=== PATIENT | female | born 1965 | race Caucasian/White ===

== ENCOUNTER 2017-07-05 09:41 | Day surgery (SDC) | payer MEDICAID, SELFPAY ==
[2017-07-05 10:11] VITALS: BP 109/66; PULSE 69; RESP 14; TEMP 36.6; O2SAT 99; BMI 29.7
--- NOTE | 2017-07-05 10:30 | RAD_ITS ---
STUDY: X-RAY - LUMBAR SPINE REASON FOR EXAM: Female, 51 years old. Epidural block. TECHNIQUE: Single coned-down view(s) of the lumbar spine were obtained. COMPARISON: None FINDINGS: Intraoperative imaging provided for epidural block. RAD/Spine 1 View Any Level IMPRESSION: Imaging provided for epidural block. Electronically Signed: Frederick Magdaleno MD at 14:25 EDT Tel [phone], Service support ,
[2017-07-05] MEDS: Triamcinolone Acetonide 40 MG/ML Vial (11:15)
[2017-07-05 11:21] VITALS: BP 109/66; BP 78/58; PULSE 72; RESP 16; TEMP 36.3; O2SAT 97
--- NOTE | 2017-07-05 11:22 | SUR.OPER ---
LIDOCAINE 0.5% 8ML USED BY FOR PROCEDURE. -TB
[2017-07-05 11:25] VITALS: BP 101/71; BP 109/66; PULSE 74; RESP 16; O2SAT 98
[2017-07-05 11:30] VITALS: BP 109/66; BP 93/74; PULSE 77; RESP 16; O2SAT 100
[2017-07-05 11:40] VITALS: BP 104/71; BP 109/66; PULSE 72; RESP 16; TEMP 35.8; O2SAT 100
[2017-07-05 12:00] VITALS: BP 109/66
== END 2017-07-05 12:05 | disposition home or self-care (01) ==
LOC: SDC 09:42 → AC 09:44
PROVIDERS: Visit Provider Anesthesiology Pain Medicine
PROC: 3E0S3BZ Introduction of Anesthetic Agent into Epidural Space, Percutaneous Approach (ICD-10-PCS; CPT 62322; principal; 2017-07-05 10:25)
DX: M51.16 Intervertebral disc disorders with radiculopathy, lumbar region (principal); M51.36 Other intervertebral disc degeneration, lumbar region; J44.9 Chronic obstructive pulmonary disease, unspecified; I10 Essential (primary) hypertension; E78.00 Pure hypercholesterolemia, unspecified; M54.9 Dorsalgia, unspecified; G89.29 Other chronic pain; F17.200 Nicotine dependence, unspecified, uncomplicated; Z78.0 Asymptomatic menopausal state; Z79.899 Other long term (current) drug therapy
CPT/HCPCS: 62323; 64483; 72020; 72100; J7120

== ENCOUNTER → 2017-09-03 11:29 | Outpatient (CLI) | payer MEDICAID, SELFPAY ==
[2017-09-03 12:43] LABS: Amphetamine Urine VISTA NEGATIVE (<1000 ng/mL); Barbiturate Urine VISTA NEGATIVE (< 200 ng/mL); Benzodiazepine Urine VISTA NEGATIVE (< 200 ng/mL); Cocaine Urine VISTA NEGATIVE (< 300 ng/mL); Ecstacy Urine VISTA NEGATIVE (< 500 ng/mL); Methadone Urine VISTA NEGATIVE (< 300 ng/mL); PCP Urine VISTA NEGATIVE (< 25 ng/mL); THC Urine VISTA NEGATIVE (< 50 ng/mL); Vista UDS pH Range 6
== END ==
PROVIDERS: Visit Provider Anesthesiology Pain Medicine
DX: F11.20 Opioid dependence, uncomplicated (principal)
CPT/HCPCS: 80307

== ENCOUNTER → 2018-01-20 14:56 | Outpatient (CLI) | payer MEDICAID, SELFPAY ==
--- NOTE | 2018-01-20 15:00 | RAD_ITS ---
STUDY: X-RAY - PELVIS AND LEFT HIP REASON FOR EXAM: Female, 52 years old. Hip pain for over a year. TECHNIQUE: 3 views of the pelvis and hip. COMPARISON: None. FINDINGS: There is a non-specific bowel gas pattern. Normal visualized soft tissue structures. Normal bilateral iliac wings, sacroiliac joints and visualized sacrum. Normal bilateral superior and inferior pubic rami. Normal pubic symphysis. Normal bilateral ischial tuberosities. There is minimal degenerative changes of the right hip. Normal visualized left femoral head. Normal left acetabulum. There is mild articular joint space narrowing of the left hip. RAD/HIP, UNI W/ Pelvis 2-3 Views IMPRESSION: Mild degenerative changes of the hips. There is no acute fracture or dislocation. Electronically Signed: Zuhair Olivares DO at 16:13 EST Tel [phone], Service support ,
--- OUTSIDE RECORDS SUMMARY | 2018-03-04 13:15 | XMS RPT_ITS ---
:1965 Author Organization OHIP Support Name Relationship Address Phone CORDELL GOMEZ Unavailable [address] + [place] [address] UE Unavailable Unavailable Unavailable D Unavailable Unavailable Unavailable JASON, CORDELL Unavailable Unavailable + [place] [address] JASON, CORDELL Unavailable Unavailable Unavailable HÉCTOR ARIANNE Unavailable [address] [place] [address] JASON, CORDELL Unavailable Unavailable + HÉCTOR ARIANNE Unavailable [address] + [place] [id number] JASON, CORDELL Unavailable Unavailable Unavailable HÉCTOR ARIANNE Unavailable [address] [place] [address] D Unavailable Unavailable Unavailable JASON, CORDELL Unavailable Unavailable + [place] [address] JASON, CORDELL Unavailable Unavailable + HÉCTOR, ARIANNE Unavailable [address] + [place] [address] D Unavailable Unavailable Unavailable JASON, CORDELL Unavailable Unavailable + [place] [address] JASON, CORDELL Unavailable Unavailable + HÉCTOR, ARIANNE Unavailable [address] + [place] [address] JASON, CORDELL Unavailable Unavailable + HÉCTOR ARIANNE Unavailable [address] + [place] [address] JASON, CORDELL Unavailable Unavailable + HÉCTOR, ARIANNE Unavailable [address] [address] + [place] [address] JASON, CORDELL Unavailable Unavailable + HÉCTOR ARIANNE Unavailable [address] + [place] [address] JASON, CORDELL Unavailable Unavailable + HÉCTOR, ARIANNE Unavailable [address] + [place] [address] JASON, CORDELL Unavailable Unavailable + HÉCTOR, ARIANNE Unavailable [address] [address] + [place] [address] JASON, CORDELL Unavailable Unavailable + HÉCTOR, ARIANNE Unavailable [address] + [address], CORDELL Unavailable Unavailable + HÉCTOR, ARIANNE Unavailable [address] [address] + [place] [address] JASON, CORDELL Unavailable Unavailable + HÉCTOR, ARIANNE Unavailable [address] + [place] [address] JASON, CORDELL Unavailable Unavailable + HÉCTOR, ARIANNE Unavailable [address] [facility] [address] + [place] [address] JASON, CORDELL Unavailable Unavailable + HÉCTOR, ARIANNE Unavailable [address] [place] [address] [address] + [place] [address] JASON, CORDELL Unavailable Unavailable + HÉCTOR, ARIANNE Unavailable [address] + [place] [address] JASON, CORDELL Unavailable Unavailable + HÉCTOR, ARIANNE Unavailable [address] + [place] [address] JASON, CORDELL Unavailable Unavailable + HÉCTOR, ARIANNE Unavailable [address] [address] + [place] [address] Care Team Providers Name Role Phone DANNA PINON Attending Unavailable RANULFO VOSS Attending Unavailable RANULFO ISBELL Primary Care Unavailable RANULFO VOSSR Attending Unavailable RANULFO ISBELL Primary Care Unavailable RANULFO VOSS Attending Unavailable RANULFO ISBELL Primary Care Unavailable MOROCCO, ZEE Attending Unavailable ISBELLRANULFO ESCOTO Primary Care Unavailable STADNICK, RANULFO ALLEN Attending Unavailable ISBELL, RANULFO SARABIA Primary Care Unavailable MOROCCO, ZEE Attending Unavailable ISBELL, RANULFO SARABIA Primary Care Unavailable STADNICK, RANULFO ALLEN Attending Unavailable ISBELL, RANULFO SARABIA Primary Care Unavailable EMILY SALAS Attending Unavailable ISBELLRANULFO ESCOTO Primary Care Unavailable STADNICK, RANULFO ALLEN Attending Unavailable ISBELLRANULFO ESCOTO Primary Care Unavailable STADNICK, RANULFO ALLEN Attending Unavailable ISBELLRANULFO ESCOTO Primary Care Unavailable Stadnick, Dr. Ranulfo Rodney Admitting Unavailable Stadnick, Dr. Ranulfo Rodney Attending Unavailable Stadnick, Dr. Ranulfo Rodney Admitting Unavailable Stadnick, Dr. Ranulfo Rodney Attending Unavailable Stadnick, Dr. Ranulfo Rodney Admitting Unavailable Stadnick, Dr. Ranulfo Rodney Attending Unavailable Revill, Dr. Mir Giordano Admitting Unavailable Revill, Dr. Mir Giordano Attending Unavailable Isbell, Dr. Ranulfo Kendrick Admitting Unavailable Isbell, Dr. Ranulfo Kendrick Attending Unavailable Isbell, Dr. Ranulfo Kendrick Admitting Unavailable Isbell, Dr. Ranulfo Kendrick Attending Unavailable Basali, Dr. Meera Valera Admitting Unavailable Basali, Dr. Meera Valera Attending Unavailable Stadnick, Dr. Ranulfo Rodney Admitting Unavailable Stadnick, Dr. Ranulfo Rodney Attending Unavailable GAGEJESUS Attending Unavailable ISBELLRANULFO ESCOTO Referring Unavailable GAGEJESUS Attending Unavailable RANULFO ISBELL Referring Unavailable WALKER WILEY Attending Unavailable SELF, SELF Referring Unavailable XiongPasquale Attending Unavailable Ranulfo Isbell Primary Care Unavailable XiongPasquale Attending Unavailable Ranulfo Isbell Primary Care Unavailable XiongPasquale Admitting Unavailable BaigNiles Attending Unavailable IsbellRanulfo escoto Primary Care Unavailable BaigNiles hernandez Attending Unavailable Ranulfo Isbell Primary Care Unavailable STADNICK, RANULFO ALLEN Attending Unavailable Basali, Meera Attending Unavailable Basali, Meera Referring Unavailable Ranulfo Isbell Primary Care Unavailable Basali, Meera Attending Unavailable Basali, Meera Referring Unavailable Ranulfo sIbell Primary Care Unavailable Basali, Meera Attending Unavailable Basali, Meera Referring Unavailable Ranulfo Isbell Primary Care Unavailable Basali, Meera Attending Unavailable Basali, Meera Referring Unavailable Ranulfo Isbell Primary Care Unavailable PROBLEMS PROBLEMS DATE TYPE CONDITION / CODE ATTENDING STATUS SOURCE 02/08/2018 Admitting Cough / 28() WALKER WILEY [facility] Diagnosis System ([place]) Repository 06/14/2015 Admitting Rheumatoid STARANULFO OVIEDO [facility] diagnosis arthritis, ALEJANDRO Three unspecified / Repository M06.9(ICD-10) 12/06/2017 Admitting Other specified RANULFO VOSS [facility] diagnosis disorders of muscle ALEJANDRO Three / M62.89(ICD-10) Repository 09/03/2017 Unknown F11.20 - Opioid Meera Osborn Active [place] dependence, Community uncomplicated / Hospital F11.20(ICD-10) Repository 05/07/2017 Admitting Major depressive [facility], [facility], System ([place]) recurrent, moderate Repository (HCC) / F33.1(ICD-10) 05/07/2017 Admitting [facility] Diagnosis (episodic System ([place]) paroxysmal anxiety) Repository / F41.0(ICD-10) 04/22/2017 Admitting Allergic contact MOROCCO, [facility] diagnosis dermatitis, Three unspecified cause / Repository L23.9(ICD-10) 04/11/2017 Admitting Rash and other MOROCCO, [facility] diagnosis nonspecific skin Three eruption / Repository R21(ICD-10) 03/06/2017 Admitting Encounter for RANULFO VOSS [facility] One diagnosis general adult ALEJANDRO Repository medical examination without abnormal findings / Z00.00(ICD-10) 03/06/2017 Admitting Rheumatoid RANULFO VOSS [facility] diagnosis arthritis with ALEJANDRO Three rheumatoid factor, Repository unspecified / M05.9(ICD-10) PROCEDURES PROCEDURES No Procedure Records FoundRESULTS RESULTS SPINE LUMBAR Observed: 02/05/2018 Status: F Source: GUIDO (ROUTINE) 9:40 AM [facility] REPOSITORY [facility] [address] [place] [address] Spine Lumbar (Routine) MR#: [id number] Acct: [id number] Name: HÉCTORZULEMA Ana Rep #: [id number] : 1965 F 52 From: Aviva Ca PCP: Ranulfo Isbell MD Status: REG CLI Study: Spine Lumbar (Routine) Date of Exam: 02/05/18 Exam# [id number] Ordering Dr: Meera Osborn MD STUDY: MRI LUMBAR SPINE WITHOUT CONTRAST REASON FOR EXAM: Female, 52 years old. back pain radiates into legs, L and gt;R few years. TECHNIQUE: Standardized fat and water weighted pulse sequences were obtained in the sagittal and axial planes. COMPARISON: X-ray dated July 05, 2017 FINDINGS: T12-L1: There is mild disc space narrowing and endplate spondylosis. There is no significant disc herniation, central canal or foraminal stenosis. Normal lumbar lordosis. There is no substantial scoliosis. Normal conus medullaris that terminates at the L1 L1-2: There is mild disc space narrowing and endplate spondylosis. There is no significant disc herniation, central canal or foraminal stenosis. L2-3: There is minimal disc space narrowing and endplate spondylosis. There is no significant disc herniation, central canal or foraminal stenosis. L3-4: There is minimal disc space narrowing and endplate spondylosis. There is no significant disc herniation, central canal or foraminal stenosis. There is mild facet arthropathy L4-5: There is mild disc space narrowing and endplate spondylosis. There is mild disc bulge without significant central canal or foraminal stenosis. There is mild facet arthropathy. L5-S1: There is minimal disc space narrowing and endplate spondylosis. There is no significant disc herniation, central canal or foraminal stenosis. Normal visualized sacral ala. Normal visualized paraspinous soft tissue structures. MRI/Spine Lumbar (Routine) IMPRESSION: Mild degenerative changes. Electronically Signed: Aviva Ca MD at 9:45 EST Tel , Service support , CC: Meera Osborn MD; Ranulfo Isbell MD Lead Ingot Molder: Signed HIP, UNI W/ PELVIS Observed: 01/20/2018 Status: F Source: PERRY 2-3 VIEWS 2:59 PM [facility] REPOSITORY [facility] [address] [place] [address] HIP, UNI W/ Pelvis 2-3 Views MR#: [id number] Acct: [id number] Name: ZULEMA ANAYA Rep #: [id number] : 1965 F 52 From: Zuhair Olivares DO PCP: Ranulfo Isbell MD Status: REG CLI Study: HIP, UNI W/ Pelvis 2-3 Views Date of Exam: 01/20/18 Exam# [id number] Ordering Dr: Meera Osborn MD STUDY: X-RAY - PELVIS AND LEFT HIP REASON FOR EXAM: Female, 52 years old. Hip pain for over a year. TECHNIQUE: 3 views of the pelvis and hip. COMPARISON: None. FINDINGS: There is a non-specific bowel gas pattern. Normal visualized soft tissue structures. Normal bilateral iliac wings, sacroiliac joints and visualized sacrum. Normal bilateral superior and inferior pubic rami. Normal pubic symphysis. Normal bilateral ischial tuberosities. There is minimal degenerative changes of the right hip. Normal visualized left femoral head. Normal left acetabulum. There is mild articular joint space narrowing of the left hip. RAD/HIP, UNI W/ Pelvis 2-3 Views IMPRESSION: Mild degenerative changes of the hips. There is no acute fracture or dislocation. Electronically Signed: Zuhair Olivares DO at 16:13 EST Tel [phone], Service support , CC: Meera Osborn MD; Ranulfo Isbell MD Lead Ingot Molder: Signed CBC WITH DIFF Collected: 12/03/2017 Status: F Source: [facility] 9:31 AM [facility] REPOSITORY TYPE CODE TESTS RESULT OUT OF RANGE REFERENCE UNITS LAB WBC 3.4-10.6 K/mcL WBC Normal 6.9 LAB RBC 3.7-5.0 M/mcL RBC Normal 4.17 LAB HGB 11.6-15.4 g/dL Normal Hemoglobin 12.8 LAB HCT 34.4-44.8 % Normal Hematocrit 38.1 LAB MCV 82.6-98.9 FL MCV Normal 91.3 LAB MCH 27.9-33.9 pg MCH Normal 30.6 LAB MCHC 33.1-35.1 g/dL MCHC Normal 33.5 LAB RDW 10.0-14.4 % RDW Normal 13.2 LAB PLT 162-402 K/mcL Platelet Normal Count 393 LAB MPV 7.0-10.6 FL MPV Normal 8.2 LAB NEUT# 1.2-6.9 K/mcL Normal Neutrophil # 3.5 LAB LYMPH# 1.0-3.7 K/mcL Normal Lymphocyte # 2.3 LAB MONO# 0.1-0.6 K/mcL High Monocyte # 0.9 LAB EOS# 0-0.5 K/mcL Normal Eosinophil # 0.1 LAB BASO# 0-0.2 K/mcL Basophil Normal # 0.1 LAB SEGNEU% % Normal Segmented Neut % 50.2 LAB LYMP% % Normal Lymphocyte% 33.7 LAB MO% % Monocyte Normal % 12.9 LAB EO% % Normal Eosinophil % 1.9 LAB BA% % Basophil Normal % 1.3 Performed By: #### CBCDIF, BUNCR, HEPF #### Unless otherwise noted, all testing performed by [address] [address] CLIA: [id number] Channel Sales Director: Jesu Cruz M.D. HEPATIC FUNCTION Collected: 12/03/2017 Status: F Source: [facility] PANEL 9:31 AM [facility] REPOSITORY TYPE CODE TESTS RESULT OUT OF RANGE REFERENCE UNITS LAB AST 0-45 U/L Normal AST 36 (SGOT) Result Comment: This test result might be falsely depressed or falsely elevated on samples drawn from patients taking Sulfasalazine and Sulfapyridine. Venipuncture should occur prior to taking either of these drugs. LAB ALT 14-65 U/L Normal ALT (SGPT) 48 Result Comment: This test result might be falsely depressed or falsely elevated on samples drawn from patients taking Sulfasalazine and Sulfapyridine. Venipuncture should occur prior to taking either of these drugs. LAB ALKP 40-150 U/L Normal Alkaline Phosphatase 41 LAB BILIT 0.3-1.2 mg/dL Normal Bilirubin,Total 0.3 LAB BILID 0.0-0.4 mg/dL Normal Bilirubin, Direct 0.1 LAB PROT 6.0-8.0 g/dL Normal Protein, Total 7.5 LAB ALB 3.2-5.2 g/dL Normal Albumin 3.7 Performed By: #### CBCDIF, BUNCR, HEPF #### Unless otherwise noted, all testing performed by [place] [address] CLIA: [id number] Channel Sales Director: Jesu Cruz M.D. BUN AND CREATININE Collected: 12/03/2017 Status: F Source: [facility] 9:31 AM [facility] REPOSITORY TYPE CODE TESTS RESULT OUT OF RANGE REFERENCE UNITS LAB BUN 8-25 mg/dL BUN Normal 20 LAB CREA 0.40-1.10 mg/dL High Creatinine 1.14 LAB eGFR >60 ml/min/1.7 Low 3sq.m eGFR,NonAfrican- 50 Prydeinig Result Comment: Non- GFR Calc eGFR is an estimated Glomerular Filtration Rate based on the value of the patient's serum creatinine. In outpatients, eGFR should be used as a helpful tool in screening for CKD. In inpatients or patients with acute renal failure, eGFR represents the GFR at the moment of the draw and should be used with caution. LAB eGFRB ml/min/1.73sq.m eGFR, Normal -Prydeinig >=60 Result Comment: GFR Calc Performed By: #### CBCDIF, BUNCR, HEPF #### Unless otherwise noted, all testing performed by [place] [address] CLIA: [id number] Channel Sales Director: Jesu Cruz M.D. URINE DRUG SCREEN Collected: 09/03/2017 Status: F Source: GUIDO (VISTA) 11:33 AM [facility] REPOSITORY Order Comment: Comments: URINE TOXICOLOGY [id number] RUN LOWEST TEST List of Drugs Taken or Suspected? UNK TYPE CODE TESTS RESULT OUT OF RANGE REFERENCE UNITS LAB L505.0075 TO BE Normal CONFIRMED Result Comment: CONFIRMATORY TESTING FOR ALL POSITIVE URINE DRUG SCREEN RESULTS WILL ONLY BE SENT OUT UPON PHYSICIAN ORDER. VISTA Urine Drug Screen methods provide only preliminary analytical test results. A more specific alternate chemical method must be used in order to obtain a confirmed analytical result. Gas chromatography/mass spectrometery (GC/MS) is the preferred confirmatory method. Clinical consideration and professional judgement should be applied to any drug of abuse test result, particularly when preliminary positive results are used. URINE TCA TESTING MUST BE ORDERED SEPARATELY. USE TEST MNEMONIC: [facility] LAB L505.5005 VISTA UDS PH 6 Normal LAB L505.5015 <1000 ng/mL AMPHETAMINES Normal NEGATIVE LAB L505.5025 < 200 ng/mL BARBITIURATES Normal NEGATIVE LAB L505.5035 < 200 ng/mL BENZODIAZIPINE Normal NEGATIVE LAB L505.5045 < 300 ng/mL COCAINE Normal NEGATIVE LAB L505.5055 < 500 ng/mL ECSTACY Normal NEGATIVE LAB L505.5065 < 300 ng/mL METHADONE Normal NEGATIVE LAB L505.5075 < 300 High ng/mL OPIATES POSITIVE LAB L505.5085 < 25 ng/mL PCP Normal NEGATIVE LAB L505.5095 < 50 ng/mL THC Normal NEGATIVE Performed By: #### L505.5000 #### [facility] [address] [place], [address] MISCELLANEOUS LAB Collected: 09/03/2017 Status: F Source: PERRY PROCEDURE 11:33 AM [facility] REPOSITORY Order Comment: Comments: URINE TOXICOLOGY [id number] RUN LOWEST TEST Test(s) Ordered: URINE TOXICOLOGY [id number] RUN LOWEST TEST TYPE CODE TESTS RESULT OUT OF RANGE REFERENCE UNITS LAB L801.1541 Normal [facility] TEST Result Comment: TEST RESULT UNITS REF INTERVAL [id number] 6+Oxycodone-Bund Amphetamines, Urine Negative ng/mL Cbamld=5420 Amphetamine test includes Amphetamine and Methamphetamine. Barbiturate Negative ng/mL Ohdnub=608 Benzodiazepines Negative ng/mL Mgcrtx=542 Cannabinoids Negative ng/mL Cutoff=20 Cocaine (Metabolite) Negative ng/mL Lexbmh=093 Opiates Negative ng/mL Jhgqsq=513 Opiate test includes Codeine, Morphine, Hydromorphone, Hydrocodone. Please Note: Confirmation performed by Mass Spectrometry Oxycodone/Oxymorphone, Urine Negative ng/mL Dknuuz=028 Test includes Oxycodone and Oxymorphone TESTING PERFORMED AT [facility]. ORIGINAL REPORT ON FILE IN LAB CONTAINS ADDITIONAL TEST SITE INFORMATION. Performed By: #### L801.1541 #### [facility] [address] [place] [place], [address] CBC WITH DIFF Collected: 07/30/2017 Status: F Source: [facility] 11:33 AM [facility] REPOSITORY TYPE CODE TESTS RESULT OUT OF RANGE REFERENCE UNITS LAB WBC 3.4-10.6 K/mcL WBC Normal 6.8 LAB RBC 3.7-5.0 M/mcL RBC Normal 3.98 LAB HGB 11.6-15.4 g/dL Normal Hemoglobin 12.5 LAB HCT 34.4-44.8 % Normal Hematocrit 36.6 LAB MCV 82.6-98.9 FL MCV Normal 91.9 LAB MCH 27.9-33.9 pg MCH Normal 31.3 LAB MCHC 33.1-35.1 g/dL MCHC Normal 34.1 LAB RDW 10.0-14.4 % RDW Normal 13.1 LAB PLT 162-402 K/mcL Platelet Normal Count 315 LAB MPV 7.0-10.6 FL MPV Normal 7.5 LAB NEUT# 1.2-6.9 K/mcL Normal Neutrophil # 2.8 LAB LYMPH# 1.0-3.7 K/mcL Normal Lymphocyte # 3.2 LAB MONO# 0.1-0.6 K/mcL Monocyte Normal # 0.6 LAB EOS# 0-0.5 K/mcL Normal Eosinophil # 0.1 LAB BASO# 0-0.2 K/mcL Basophil Normal # 0.1 LAB SEGNEU% % Normal Segmented Neut % 41.0 LAB LYMP% % Normal Lymphocyte% 47.7 LAB MO% % Monocyte Normal % 8.8 LAB EO% % Normal Eosinophil % 1.5 LAB BA% % Basophil Normal % 1.0 Performed By: #### CBCDIF, BUNCR, HEPF #### Unless otherwise noted, all testing performed by [place] [address] CLIA: [id number] Channel Sales Director: Jesu Cruz M.D. BUN AND CREATININE Collected: 07/30/2017 Status: F Source: [facility] 11:33 AM [facility] REPOSITORY TYPE CODE TESTS RESULT OUT OF RANGE REFERENCE UNITS LAB BUN 8-25 mg/dL BUN Normal 19 LAB CREA 0.40-1.10 mg/dL Normal Creatinine 1.05 LAB eGFR >60 ml/min/1.7 Low 3sq.m eGFR,NonAfrican- 55 Prydeinig Result Comment: Non- GFR Calc eGFR is an estimated Glomerular Filtration Rate based on the value of the patient's serum creatinine. In outpatients, eGFR should be used as a helpful tool in screening for CKD. In inpatients or patients with acute renal failure, eGFR represents the GFR at the moment of the draw and should be used with caution. LAB eGFRB ml/min/1.73sq.m eGFR, Normal -Prydeinig >=60 Result Comment: GFR Calc Performed By: #### CBCDIF, BUNCR, HEPF #### Unless otherwise noted, all testing performed by [place] [address] CLIA: [id number] Channel Sales Director: Jesu Cruz M.D. HEPATIC FUNCTION Collected: 07/30/2017 Status: F Source: [facility] 11:33 AM [facility] REPOSITORY TYPE CODE TESTS RESULT OUT OF RANGE REFERENCE UNITS LAB AST 0-45 U/L Normal AST 27 (SGOT) Result Comment: This test result might be falsely depressed or falsely elevated on samples drawn from patients taking Sulfasalazine and Sulfapyridine. Venipuncture should occur prior to taking either of these drugs. LAB ALT 14-65 U/L Normal ALT (SGPT) 33 Result Comment: This test result might be falsely depressed or falsely elevated on samples drawn from patients taking Sulfasalazine and Sulfapyridine. Venipuncture should occur prior to taking either of these drugs. LAB ALKP 40-150 U/L Low Alkaline Phosphatase 30 LAB BILIT 0.3-1.2 mg/dL Low Bilirubin,Total 0.2 LAB BILID 0.0-0.4 mg/dL Normal Bilirubin, Direct < 0.1 LAB PROT 6.0-8.0 g/dL Normal Protein, Total 7.0 LAB ALB 3.2-5.2 g/dL Normal Albumin 3.6 Performed By: #### CBCDIF, BUNCR, HEPF #### Unless otherwise noted, all testing performed by [facility] [address] [place], [place] [address] CLIA: [id number] Channel Sales Director: Jesu Cruz M.D. SPINE 1 VIEW ANY Observed: 07/04/2017 Status: F Source: PERRY LEVEL 11:20 PM [facility] REPOSITORY [facility] Services [address] [place] [address] Spine 1 View Any Level MR#: [id number] Acct: [id number] Name: ZULEMA ANAYA Rep #: [id number] : 1965 F 51 From: Frederick Magdaleno MD PCP: Ranulfo Isbell MD Status: [facility] Study: Spine 1 View Any Level Date of Exam: 07/05/17 Exam# [id number] Ordering Dr: Meera Osborn MD STUDY: X-RAY - LUMBAR SPINE REASON FOR EXAM: Female, 51 years old. Epidural block. TECHNIQUE: Single coned-down view(s) of the lumbar spine were obtained. COMPARISON: None FINDINGS: Intraoperative imaging provided for epidural block. RAD/Spine 1 View Any Level IMPRESSION: Imaging provided for epidural block. Electronically Signed: Frederick Magdaleno MD at 14:25 EDT Tel [phone], Service support , CC: Meera Osborn MD; Ranulfo Isbell MD Lead Ingot Molder: Signed CHEST PA AND LATERAL Observed: 05/08/2017 Status: F Source: [facility] 1:45 PM [facility] REPOSITORY Final Report Accession No: [id number] Performed: May 08 2017 1:45PM Examination: CHEST PA AND LATERAL CHEST, 2 VIEWS. COMPARISON: 03/30/2017. CLINICAL HISTORY: Upper back pain, shortness of breath, bronchitis. FINDINGS: The cardiomediastinal contours are within normal limits. The lungs are clear without focal opacification or consolidation. No pleural effusion or pneumothorax. Visualized osseous structures are intact. IMPRESSION: No acute cardiopulmonary process. Interpreting Physician: MAX DANIELS M.D. Trans: apope : cc: CBC WITH DIFF Collected: 05/07/2017 Status: F Source: [facility] 4:57 PM [facility] REPOSITORY TYPE CODE TESTS RESULT OUT OF RANGE REFERENCE UNITS LAB WBC 3.4-10.6 K/mcL WBC Normal 9.6 LAB RBC 3.7-5.0 M/mcL RBC Normal 4.36 LAB HGB 11.6-15.4 g/dL Normal Hemoglobin 13.3 LAB HCT 34.4-44.8 % Normal Hematocrit 40.2 LAB MCV 82.6-98.9 FL MCV Normal 92.1 LAB MCH 27.9-33.9 pg MCH Normal 30.6 LAB MCHC 33.1-35.1 g/dL MCHC Normal 33.2 LAB RDW 10.0-14.4 % High RDW 14.7 LAB PLT 162-402 K/mcL High Platelet Count 466 LAB MPV 7.0-10.6 FL MPV Normal 8.1 LAB NEUT# 1.2-6.9 K/mcL Normal Neutrophil # 4.4 LAB LYMPH# 1.0-3.7 K/mcL High Lymphocyte # 4.2 LAB MONO# 0.1-0.6 K/mcL High Monocyte # 0.8 LAB EOS# 0-0.5 K/mcL Normal Eosinophil # 0.1 LAB BASO# 0-0.2 K/mcL Basophil Normal # 0.1 LAB SEGNEU% % Normal Segmented Neut % 45.9 LAB LYMP% % Normal Lymphocyte% 43.7 LAB MO% % Monocyte Normal % 8.1 LAB EO% % Normal Eosinophil % 1.0 LAB BA% % Basophil Normal % 1.3 Performed By: #### CBCDIF, HEPF, BUNCR #### Unless otherwise noted, all testing performed by [address] [address] CLIA: [id number] Channel Sales Director: Jesu Cruz M.D. BUN AND CREATININE Collected: 05/07/2017 Status: F Source: [facility] 4:57 PM [facility] REPOSITORY TYPE CODE TESTS RESULT OUT OF RANGE REFERENCE UNITS LAB BUN 8-25 mg/dL BUN Normal 20 LAB CREA 0.40-1.10 mg/dL High Creatinine 1.12 LAB eGFR >60 ml/min/1.7 Low 3sq.m eGFR,NonAfrican- 51 Prydeinig Result Comment: Non- GFR Calc eGFR is an estimated Glomerular Filtration Rate based on the value of the patient's serum creatinine. In outpatients, eGFR should be used as a helpful tool in screening for CKD. In inpatients or patients with acute renal failure, eGFR represents the GFR at the moment of the draw and should be used with caution. LAB eGFRB ml/min/1.73sq.m eGFR, Normal -Prydeinig >=60 Result Comment: GFR Calc Performed By: #### CBCDIF, HEPF, BUNCR #### Unless otherwise noted, all testing performed by [address] [address] CLIA: [id number] Channel Sales Director: Jesu Cruz M.D. HEPATIC FUNCTION Collected: 05/07/2017 Status: F Source: [facility] PANEL 4:57 PM [facility] REPOSITORY TYPE CODE TESTS RESULT OUT OF RANGE REFERENCE UNITS LAB AST 0-45 U/L Normal AST 29 (SGOT) Result Comment: This test result might be falsely depressed or falsely elevated on samples drawn from patients taking Sulfasalazine and Sulfapyridine. Venipuncture should occur prior to taking either of these drugs. LAB ALT 14-65 U/L Normal ALT (SGPT) 35 Result Comment: This test result might be falsely depressed or falsely elevated on samples drawn from patients taking Sulfasalazine and Sulfapyridine. Venipuncture should occur prior to taking either of these drugs. LAB ALKP 40-150 U/L Normal Alkaline Phosphatase 46 LAB BILIT 0.3-1.2 mg/dL Low Bilirubin,Total 0.2 LAB BILID 0.0-0.4 mg/dL Normal Bilirubin, Direct 0.1 LAB PROT 6.0-8.0 g/dL Normal Protein, Total 7.9 LAB ALB 3.2-5.2 g/dL Normal Albumin 4.2 Performed By: #### CBCDIF, HEPF, BUNCR #### Unless otherwise noted, all testing performed by [place] [address] [facility] [place], [place] [address] CLIA: [id number] Channel Sales Director: Jesu Cruz M.D. CHEST PA AND LATERAL Observed: 03/30/2017 Status: F Source: [facility] 11:55 AM [facility] REPOSITORY Final Report Accession No: [id number] Performed: Mar 30 2017 11:55AM Examination: CHEST PA AND LATERAL CHEST PA AND LATERAL CLINICAL STATEMENT: Cough, short of breath, weakness. TECHNIQUE: Upright PA and lateral views are acquired, and compared to November 11, 2015. FINDINGS: There is no heart enlargement. The mediastinal, hilar, and vascular markings are normal. Lungs are symmetrically ventilated and are clear. No focal airspace opacities are identified. There are no effusions. The bony structures are intact. Note is again made of mild pectus excavatum deformity. Tracheobronchial tree structures appeared normal. IMPRESSION: 1. No acute cardiopulmonary abnormality. 2. Mild pectus excavatum deformity redemonstrated. Interpreting Physician: DIONNA ALAN D.O. Trans: bminni : cc: INFLUENZA A,B RAPID Collected: 03/30/2017 Status: F Source: [facility] MOLECULAR 11:45 AM [facility] REPOSITORY TYPE CODE TESTS RESULT OUT OF REFERENCE UNITS RANGE LAB FLUANAT Not Detected Normal Influenza A Not Detected Rapid Molecular LAB FLUBNAT Not Detected Normal Influenza B Not Detected Rapid Molecular Performed By: #### FLUNAT #### Unless otherwise noted, all testing performed by [facility] [address]. [place], [place] [address] CLIA: [id number] Channel Sales Director: Vale Ferrer Observed: 03/13/2017 Status: COMPLETED Source: [place] 12:00 AM [facility] REPOSITORY Telephone (ORQ) ZULEMA ANAYA ([id number]) 1965 F Date Time Provider Department 03/13/17 DANNA PINON During your visit today, we recorded the following information about you: Cinthya Sears Coord 03/13/2017 10:44 AM Signed Pt. would like to know what medication did you two discuss regarding the Fibromyalgia? She can't seem to remember, but she stated that you two verbally discussed it. She said it was the most up to date medication used for Fibro. Pt. can best be reached at [phone]. Danna Pinon MD 03/13/2017 12:41 PM Signed I believe what she is referring to is low-dosed naltrexone (LDN). Cinthya, would you mind calling her back? Thanks, MD Cinthya Lam Coord 03/13/2017 1:45 PM Signed Pt. aware. Allergies As of Date: 03/13/2017 Noted Allergy Reaction AZATHIOPRINE SODIUM 02/16/2015 5 - Intolerance Comments: Liver issues AZATHIOPRINE 04/15/2016 16 - Unknown SULFAMETHOXAZOLE-TRIMETHOPRIM 05/29/2011 2 - Rash Date Reviewed: 03/11/2017 Reviewed by: Toni (Ct) DARRYL Lucas - Fully Assessed Reason for Visit: Patient Question [1477] Prescriptions as of 03/13/2017 Sig: ALBUTEROL SULFATE 0.63 MG/3 M* 3 (three) times a day as need* ASPIRIN 81 MG TABLET,DELAYED * Take 81 mg by mouth. EPINEPHRINE 0.3 MG/0.3 ML INJ* Inject 0.3 mg intramuscularly. FENOFIBRATE 160 MG TABLET FLUOXETINE 20 MG CAPSULE Take 20 mg by mouth. GABAPENTIN 300 MG CAPSULE HYDROCODONE 10 MG-ACETAMINOPH* LEFLUNOMIDE 20 MG TABLET Take 20 mg by mouth. LISINOPRIL 5 MG TABLET LORAZEPAM 1 MG TABLET PNEUMOVAX 23 25 MCG/0.5 ML IN* PRAVASTATIN 40 MG TABLET TRAZODONE 100 MG TABLET DICLOFENAC 1 % TOPICAL GEL Apply 4 g to affected area fo* Problem List As Of Date: 03/13/2017 (None) Encounter Status:Closed by DANNA PINON MD on 03/13/17 PROGRESS Observed: 03/11/2017 Status: COMPLETED Source: [place] 2:08 PM [facility] REPOSIT[facility] O ID: [id number] Author: Danna Pinon Service: (none) Author Type: Physician Type: Progress Notes Filed: 03/11/2017 4:52 PM Note Text: RHEUMATOLOGY CLINIC NEW CONSULT March 11, 2017 Self-referred CHIEF COMPLAINT: pain HPI: Zulema Anaya is a 51 year old female with a history of seropositive rheumatoid arthritis, osteoarthritis, fibromyalgia, depression/anxiety is evaluated in the rheumatology department for pain. She has been seeing her local materials development engineer since her diagnosis of rheumatoid arthritis at the age of 44. She is continuing to have pain and is here to seek a 2nd opinion. She has rheumatoid arthritis and is seropositive for both RF and CCP. She has a history of rheumatoid arthritis, osteoarthritis, fibromyalgia, depression/anxiety. She was diagnosed with rheumatoid arthritis at the age of 44. She describes it coming on suddently, developed pain and swelling of her hands, couldn't open and close them. She is currently taking arava 20 mg daily. She has been on this for the last year. She has been told her rheumatoid arthritis is in remission. She states she had an x-ray of her hands done recently which didn't show disease activity. She tells me that her last VECTRA was in the moderate-severe range. Prior treatments for rheumatoid arthritis have included methotrexate (stopped due to nausea and vomiting), Enbrel and Humira (stopped due to frequent UTIs/URI's and also caused nausea. Didn't feel these helped). Imuran caused her to be so sick she required hospitalization. She hasn't been on hydroxychloroquine or sulfasalazine. She says her pain travels. She has flares in shoulders, wrists, ankles. She complains of pain in her low back and left buttock that has recently become severe. She does have an x-ray that shows DDD, pain hurts down the backs of her legs. She doesn't sleep at well, takes trazodone at night. The increase in this has helped some. She has swelling in her hands still. Stiffness in the morning lasts 2 hours. She takes vicodin 5 tablets a day. She takes gabapentin 300 mg two to three times a day but feels that this hasn't helped and makes her feel worse. She hasn't been on Lyrica or Cymbalta She has been getting pneumonia twice a year RHEUMATOLOGIC REVIEW OF SYSTEMS: ROS From KP: CONSTITUTIONAL: Fatigue EYES: Pain EAR, NOSE, MOUTH, THROAT: Hearing loss, Dry mouth GASTROINTESTINAL: Abdominal pain GENITOURINARY: Blood in urine MUSCULOSKELETAL: Joint pain, Joint swelling, Morning stiffness in joints, Muscle weakness, Back pain SKIN: Sun sensitive rashes NEUROLOGIC: Headaches, Dizziness, Numbness or tingling, Memory loss ALLERGIC/ IMMUNOLOGIC: Allergies (other than medications), Increased susceptibility to infection KNOWN MEDICAL CONDITIONS: High blood pressure REVIEW OF SYSTEMS: March 11, 2017 CONSTITUTIONAL: Fever: No Fatigue: Yes Pain: Yes EYES: Pain: Yes Redness: No Loss of vision: No Dryness: No EAR, NOSE, MOUTH, THROAT: Nose bleeds: No Hearing loss: Yes Sores in mouth: No Swallowing problems: No Dry mouth: Yes CARDIOVASCULAR: Chest pain: No Swelling in the feet or legs: No RESPIRATORY: Shortness of breath: No Pain with breathing: No Chronic cough: No Coughing up blood: No , GASTROINTESTINAL: Heartburn: No Nausea: No Diarrhea: No Blood in the stool or black stool: No Abdominal pain: Yes GENITOURINARY: Blood in urine: Yes Pain or burning on urination: No] MUSCULOSKELETAL: Joint pain: Yes Joint swelling: Yes Morning stiffness in joints: Yes Muscle weakness: Yes Back pain: Yes SKIN: Rashes: No Sun sensitive rashes: Yes Color changes of hands or feet in the cold: No Hair loss: No Nail changes: No NEUROLOGICAL: Headaches: Yes Dizziness: Yes Numbness or tingling: Yes Memory loss: Yes Seizures: No HEMATOLOGIC/LYMPHATIC: Swollen glands: No Anemia: No ALLERGIES/IMMUNOLOGIC: Allergies (other than medications): Yes Increased susceptibility to infection: Yes KNOWN MEDICAL CONDITIONS: Diabetes: No Thyroid disease: No High blood pressure: Yes RAPID 3: DISEASE ACTIVITY: Weighed Score Levels: 0 - 1: Near Remission 1.3 - 2.0: Low Severity 2.3 - 4.0: Moderate Severity 4.3 - 10.0: High Severity RAPID-3 Weighed Score 03/11/2017 RAPID 3 Weighed Score 7.3 PAST MEDICAL HISTORY: Seropositive rheumatoid arthritis osteoarthritis fibromyalgia Depression Anxiety Frequent UTI's FAMILY HISTORY: No known autoimmune disease in family members SOCIAL HISTORY: Social History Substance Use Topics - Smoking status: Not on file - Smokeless tobacco: Not on file - Alcohol use Not on file MEDICATIONS: Albuterol Sulfate 0.63 mg/3 mL nebulizer solution 3 (three) times a day as needed . aspirin, enteric coated (ASPIRIN, ENTERIC COATED) 81 mg EC tablet Take 81 mg by mouth. EPINEPHrine (EPIPEN) 0.3 mg/0.3 mL auto-injector Inject 0.3 mg intramuscularly. Fenofibrate (LOFIBRA) 160 mg tablet FLUoxetine (PROZAC) 20 mg capsule Take 20 mg by mouth. gabapentin (NEURONTIN) 300 mg capsule HYDROcodone-Acetaminophen (NORCO) 10-325 mg per tablet leflunomide (ARAVA) 20 mg tablet Take 20 mg by mouth. lisinopril (ZESTRIL, PRINIVIL) 5 mg tablet LORazepam (ATIVAN) 1 mg tablet PNEUMOVAX 23 25 mcg/0.5 mL syrg injection pravastatin (PRAVACHOL) 40 mg tablet traZODone (DESYREL) 100 mg tablet diclofenac sodium (VOLTAREN) 1 % topical gel Apply 4 g to affected area four times daily. ALLERGIES: ALLERGIES Allergies not on file PHYSICAL EXAM: BP 103/70 Pulse 80 Temp 36.2 ?C (97.1 ?F) (Temporal Artery) Ht 161.5 cm (5' 3.58) Wt 75.5 kg (166 lb 8 oz) BMI 28.96 kg/m2 General:NAD and well-nourished Psych:alert and oriented x3 , normal affect and good eye contact, tearful Head: normocephalic and no temporal tenderness Eyes: PERRL, EOMI, No conjunctival erythema and non icteric ENT:External ears normal, moist mucous membranes, no oral ulcers, teeth and gums normal and oropharynx normal Neck:supple, non tender, no lymphadenopathy and no thyromegaly Lungs: clear , no rhonchi, good respiratory effort and no crackles Abdomen: soft, non tender, non distended and bowel sounds present CV: RRR and no murmurs Extremities:warm, no edema Skin: no lesions, normal hair distribution, no telangiectasias, no capillary nailbed changes, no sclerodactyly and no nail pitting MSK: Neck: Normal flexion/extension/lateral rotation Shoulders: No swelling, no tenderness, good ROM Elbows: No swelling, no tenderness, no flexion contractures, no nodules, good ROM Wrists: Both wrists appear slightly full, good ROM Hands: mcp's and pip's are diffusely ttp and have slight synovial thickening Able to make full fist bilaterally Hips: Good ROM, b/l trochanteric bursa pain. Point tenderness of left ischial bursa Knees: No effusion, no tenderness, good ROM Ankles: No swelling, no tenderness, good ROM Feet/Toes/ MTP: ttp of b/l achilles entheses with associated swelling at the tendon insertion, +metatarsal squeeze bilaterally All joints examined are stable Labs/Imaging: Outside labs reviewed from 03/06/17 CCP >250 RF positive CRP <2.9 Sed rate 11 IMPRESSION: 51 year old female with history of rheumatoid arthritis and fibromyalgia. I suspect she may have some mild rheumatoid arthritis activity, but believe that the majority of her pain complaints are likely due to fibromyalgia. I had a long discussion with her today regarding the treatment and management of fibromyalgia. We have a fibro one day program that I will refer her to. Additionally, I've given her you tube videos to watch for educational purposes. I'd also strongly have her consider our neuro chronic pain rehab program which is an intensive program for 3 weeks that would focus on weaning her off opioids. Additionally, I think she hasn't benefited from the gabapentin. I'd favor weaning her off this and starting duloxetine in its place. I typically start a dose of 20 mg daily, and increase the dose up to 60 or 90 mg as tolerated. VISIT DIAGNOSES: 1. Rheumatoid arthritis involving multiple sites with positive rheumatoid factor (HCC) - ICD9: 714.0, ICD10: M05.79 (primary diagnosis) Comment: seropositive, non-erosive. With mild disease activity. Currently on arava 20 mg daily - I'd favor having her start hydroxychloroquine and sulfasalazine in addition to the arava 2. Fibromyalgia - ICD9: 729.1, ICD10: M79.7 - FIBROMYALGIA ONE DAY EDUCATION - discussed the importance of adequate restorative non-fragmented sleep and regular graded aerobic exercise like aquatics therapy - would consider duloxetine in place of gabapentin 3. Ischial bursitis, left - ICD9: 726.5, ICD10: M70.72 - kenalog injection was given today at bedside to left ischial bursa (see procedure note below) 4. Chronic, continuous use of opioids - ICD9: 305.51, ICD10: F11.90 5. Tendonitis, Achilles, left - ICD9: 726.71, ICD10: M76.62 - trial of voltaren gel, to be applied up to 4 times daily to area 6. Depression, unspecified depression type - ICD9: 311, ICD10: F32.9 - continue prozac - she may benefit from seeing a local psychiatrist to optimize treatment for this FOLLOW-UP: with local materials development engineer, Dr. Bipin Pinon MD RHEUMATOLOGY PROCEDURE NOTE: Date: March 11, 2017 Patient name: Zulema Anaya : 1965 Aspiration / Injection of: Bursa / Tendon / Soft Tissue Site(s): 1 Location: (s): and hip(s): Left - ischial bursa If more than one (1) injection, a separate needle was used. Performed by: Danna Pinon MD Verification of the identity of the patient was obtained by 2 means: Consent: The risks, benefits, alternatives and personnel present with regards to the procedure were next discussed with the patient. The site was marked as appropriate. An audible time-out was performed and documented here. Time: 3:50 PM Antiseptic preparation: betadine and alcohol Anesthesia (cutaneous): yes Topical skin refrigerant spray (pentafluropropane and tetrafluoroethane) Medication Injected: Kenalog 40 mg / Lidocaine 1% 3 cc Fluid: No Complications: none observed Verbal instructions given. Patient left in satisfactory condition. Danna Pinon MD I spent 60 minutes in the visit, with more than 50% of the total [id number] time of the visit in counseling / coordination of care. CNOV Observed: 03/11/2017 Status: COMPLETED Source: [place] 1:40 PM [facility] REPOSITORY Office Visit (RHEUMN) ZULEMA ANAYA ([id number]) 1965 F Date Time Provider Department 03/11/17 1:40 PM DANNA PINON During your visit today, we recorded the following information about you: Temperature Pulse Blood pressure Weight 97.1 degrees 80/minute 103/70 75.5 kg Height 1.615 m Danna Pinon MD 03/11/2017 4:52 PM Signed RHEUMATOLOGY CLINIC NEW CONSULT March 11, 2017 Self-referred CHIEF COMPLAINT: pain HPI: Zulema J Héctor is a 51 year old female with a history of seropositive rheumatoid arthritis, osteoarthritis, fibromyalgia, depression/anxiety is evaluated in the rheumatology department for pain. She has been seeing her local materials development engineer since her diagnosis of rheumatoid arthritis at the age of 44. She is continuing to have pain and is here to seek a 2nd opinion. She has rheumatoid arthritis and is seropositive for both RF and CCP. She has a history of rheumatoid arthritis, osteoarthritis, fibromyalgia, depression/anxiety. She was diagnosed with rheumatoid arthritis at the age of 44. She describes it coming on suddently, developed pain and swelling of her hands, couldn't open and close them. She is currently taking arava 20 mg daily. She has been on this for the last year. She has been told her rheumatoid arthritis is in remission. She states she had an x-ray of her hands done recently which didn't show disease activity. She tells me that her last VECTRA was in the moderate-severe range. Prior treatments for rheumatoid arthritis have included methotrexate (stopped due to nausea and vomiting), Enbrel and Humira (stopped due to frequent UTIs/URI's and also caused nausea. Didn't feel these helped). Imuran caused her to be so sick she required hospitalization. She hasn't been on hydroxychloroquine or sulfasalazine. She says her pain travels. She has flares in shoulders, wrists, ankles. She complains of pain in her low back and left buttock that has recently become severe. She does have an x-ray that shows DDD, pain hurts down the backs of her legs. She doesn't sleep at well, takes trazodone at night. The increase in this has helped some. She has swelling in her hands still. Stiffness in the morning lasts 2 hours. She takes vicodin 5 tablets a day. She takes gabapentin 300 mg two to three times a day but feels that this hasn't helped and makes her feel worse. She hasn't been on Lyrica or Cymbalta She has been getting pneumonia twice a year RHEUMATOLOGIC REVIEW OF SYSTEMS: ROS From : CONSTITUTIONAL: Fatigue EYES: Pain EAR, NOSE, MOUTH, THROAT: Hearing loss, Dry mouth GASTROINTESTINAL: Abdominal pain GENITOURINARY: Blood in urine MUSCULOSKELETAL: Joint pain, Joint swelling, Morning stiffness in joints, Muscle weakness, Back pain SKIN: Sun sensitive rashes NEUROLOGIC: Headaches, Dizziness, Numbness or tingling, Memory loss ALLERGIC/ IMMUNOLOGIC: Allergies (other than medications), Increased susceptibility to infection KNOWN MEDICAL CONDITIONS: High blood pressure REVIEW OF SYSTEMS: March 11, 2017 CONSTITUTIONAL: Fever: No Fatigue: Yes Pain: Yes EYES: Pain: Yes Redness: No Loss of vision: No Dryness: No EAR, NOSE, MOUTH, THROAT: Nose bleeds: No Hearing loss: Yes Sores in mouth: No Swallowing problems: No Dry mouth: Yes CARDIOVASCULAR: Chest pain: No Swelling in the feet or legs: No RESPIRATORY: Shortness of breath: No Pain with breathing: No Chronic cough: No Coughing up blood: No , GASTROINTESTINAL: Heartburn: No Nausea: No Diarrhea: No Blood in the stool or black stool: No Abdominal pain: Yes GENITOURINARY: Blood in urine: Yes Pain or burning on urination: No] MUSCULOSKELETAL: Joint pain: Yes Joint swelling: Yes Morning stiffness in joints: Yes Muscle weakness: Yes Back pain: Yes SKIN: Rashes: No Sun sensitive rashes: Yes Color changes of hands or feet in the cold: No Hair loss: No Nail changes: No NEUROLOGICAL: Headaches: Yes Dizziness: Yes Numbness or tingling: Yes Memory loss: Yes Seizures: No HEMATOLOGIC/LYMPHATIC: Swollen glands: No Anemia: No ALLERGIES/IMMUNOLOGIC: Allergies (other than medications): Yes Increased susceptibility to infection: Yes KNOWN MEDICAL CONDITIONS: Diabetes: No Thyroid disease: No High blood pressure: Yes RAPID 3: DISEASE ACTIVITY: Weighed Score Levels: 0 - 1: Near Remission 1.3 - 2.0: Low Severity 2.3 - 4.0: Moderate Severity 4.3 - 10.0: High Severity RAPID-3 Weighed Score 03/11/2017 RAPID 3 Weighed Score 7.3 PAST MEDICAL HISTORY: Seropositive rheumatoid arthritis osteoarthritis fibromyalgia Depression Anxiety Frequent UTI's FAMILY HISTORY: No known autoimmune disease in family members SOCIAL HISTORY: Social History Substance Use Topics - Smoking status: Not on file - Smokeless tobacco: Not on file - Alcohol use Not on file MEDICATIONS: Albuterol Sulfate 0.63 mg/3 mL nebulizer solution 3 (three) times a day as needed . aspirin, enteric coated (ASPIRIN, ENTERIC COATED) 81 mg EC tablet Take 81 mg by mouth. EPINEPHrine (EPIPEN) 0.3 mg/0.3 mL auto-injector Inject 0.3 mg intramuscularly. Fenofibrate (LOFIBRA) 160 mg tablet FLUoxetine (PROZAC) 20 mg capsule Take 20 mg by mouth. gabapentin (NEURONTIN) 300 mg capsule HYDROcodone-Acetaminophen (NORCO) 10-325 mg per tablet leflunomide (ARAVA) 20 mg tablet Take 20 mg by mouth. lisinopril (ZESTRIL, PRINIVIL) 5 mg tablet LORazepam (ATIVAN) 1 mg tablet PNEUMOVAX 23 25 mcg/0.5 mL syrg injection pravastatin (PRAVACHOL) 40 mg tablet traZODone (DESYREL) 100 mg tablet diclofenac sodium (VOLTAREN) 1 % topical gel Apply 4 g to affected area four times daily. ALLERGIES: ALLERGIES Allergies not on file PHYSICAL EXAM: BP 103/70 Pulse 80 Temp 36.2 ?C (97.1 ?F) (Temporal Artery) Ht 161.5 cm (5' 3.58ANDquot;) Wt 75.5 kg (166 lb 8 oz) BMI 28.96 kg/m2 General:NAD and well-nourished Psych:alert and oriented x3 , normal affect and good eye contact, tearful Head: normocephalic and no temporal tenderness Eyes: PERRL, EOMI, No conjunctival erythema and non icteric ENT:External ears normal, moist mucous membranes, no oral ulcers, teeth and gums normal and oropharynx normal Neck:supple, non tender, no lymphadenopathy and no thyromegaly Lungs: clear , no rhonchi, good respiratory effort and no crackles Abdomen: soft, non tender, non distended and bowel sounds present CV: RRR and no murmurs Extremities:warm, no edema Skin: no lesions, normal hair distribution, no telangiectasias, no capillary nailbed changes, no sclerodactyly and no nail pitting MSK: Neck: Normal flexion/extension/lateral rotation Shoulders: No swelling, no tenderness, good ROM Elbows: No swelling, no tenderness, no flexion contractures, no nodules, good ROM Wrists: Both wrists appear slightly full, good ROM Hands: mcp's and pip's are diffusely ttp and have slight synovial thickening Able to make full fist bilaterally Hips: Good ROM, b/l trochanteric bursa pain. Point tenderness of left ischial bursa Knees: No effusion, no tenderness, good ROM Ankles: No swelling, no tenderness, good ROM Feet/Toes/ MTP: ttp of b/l achilles entheses with associated swelling at the tendon insertion, +metatarsal squeeze bilaterally All joints examined are stable Labs/Imaging: Outside labs reviewed from 03/06/17 CCP ANDgt;250 RF positive CRP ANDlt;2.9 Sed rate 11 IMPRESSION: 51 year old female with history of rheumatoid arthritis and fibromyalgia. I suspect she may have some mild rheumatoid arthritis activity, but believe that the majority of her pain complaints are likely due to fibromyalgia. I had a long discussion with her today regarding the treatment and management of fibromyalgia. We have a fibro one day program that I will refer her to. Additionally, I've given her you tube videos to watch for educational purposes. I'd also strongly have her consider our neuro chronic pain rehab program which is an intensive program for 3 weeks that would focus on weaning her off opioids. Additionally, I think she hasn't benefited from the gabapentin. I'd favor weaning her off this and starting duloxetine in its place. I typically start a dose of 20 mg daily, and increase the dose up to 60 or 90 mg as tolerated. VISIT DIAGNOSES: 1. Rheumatoid arthritis involving multiple sites with positive rheumatoid factor (HCC) - ICD9: 714.0, ICD10: M05.79 (primary diagnosis) Comment: seropositive, non-erosive. With mild disease activity. Currently on arava 20 mg daily - I'd favor having her start hydroxychloroquine and sulfasalazine in addition to the arava 2. Fibromyalgia - ICD9: 729.1, ICD10: M79.7 - FIBROMYALGIA ONE DAY EDUCATION - discussed the importance of adequate restorative non-fragmented sleep and regular graded aerobic exercise like aquatics therapy - would consider duloxetine in place of gabapentin 3. Ischial bursitis, left - ICD9: 726.5, ICD10: M70.72 - kenalog injection was given today at bedside to left ischial bursa (see procedure note below) 4. Chronic, continuous use of opioids - ICD9: 305.51, ICD10: F11.90 5. Tendonitis, Achilles, left - ICD9: 726.71, ICD10: M76.62 - trial of voltaren gel, to be applied up to 4 times daily to area 6. Depression, unspecified depression type - ICD9: 311, ICD10: F32.9 - continue prozac - she may benefit from seeing a local psychiatrist to optimize treatment for this FOLLOW-UP: with local materials development engineer, Dr. Bipin Pinon MD RHEUMATOLOGY PROCEDURE NOTE: Date: March 11, 2017 Patient name: Zulema Anaya : 1965 Aspiration / Injection of: Bursa / Tendon / Soft Tissue Site(s): 1 Location: (s): and hip(s): Left - ischial bursa If more than one (1) injection, a separate needle was used. Performed by: Danna Pinon MD Verification of the identity of the patient was obtained by 2 means: Consent: The risks, benefits, alternatives and personnel present with regards to the procedure were next discussed with the patient. The site was marked as appropriate. An audible time-out was performed and documented here. Time: 3:50 PM Antiseptic preparation: betadine and alcohol Anesthesia (cutaneous): yes Topical skin refrigerant spray (pentafluropropane and tetrafluoroethane) Medication Injected: Kenalog 40 mg / Lidocaine 1% 3 cc Fluid: No Complications: none observed Verbal instructions given. Patient left in satisfactory condition. Danna Pinon MD I spent 60 minutes in the visit, with more than 50% of the total bniw-hf-uhcd time of the visit in counseling / coordination of care. Danna Pinon MD 03/11/2017 3:43 PM Addendum For rheumatoid arthritis: - would consider starting hydroxychloroquine or sulfasalazine or both (can take in addition to Arava). 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 This condition is associated with abnormal central processing of various peripheral stimuli including pain. Fibromyalgia is a musculoskeletal manifestation of this condition. The cornerstones of therapy for this are optimal sleep, regular aerobic exercise (e.g. pool therapy) and optimal treatment of depression or anxiety, if present. Optimal quality sleep is important. You might also benefit from relaxation techniques such as yoga or biofeedback to help deal better with stress. We emphasize that all the three aspects of the treatment (sleep, exercise, depression) be adressed simultaneously for maximum benefit and effective treatment of this condition. Doing one or the other will result in less than an optimal response to treatment. PLAN: 1. Recommend visit Fibroguide Web site https://fibroguide.med.[facility].edu/ 2. Recommend YouTube video by Amador Doty - [place];chronic pain - is it all in their head?ANDquot; https://www.youtube.com/watch?v=[email or web address] Referring Provider: SELF [200] Allergies As of Date: 03/11/2017 Noted Allergy Reaction AZATHIOPRINE SODIUM 02/16/2015 5 - Intolerance Comments: Liver issues AZATHIOPRINE 04/15/2016 16 - Unknown SULFAMETHOXAZOLE-TRIMETHOPRIM 05/29/2011 2 - Rash Date Reviewed: 03/11/2017 Reviewed by: Toni (Darryl) DARRYL Lucas - Fully Assessed Primary Visit Diagnosis:Rheumatoid arthritis involving multiple sites with positive rheumatoid factor (HCC) [M05.79] Other Visit Diagnoses:Fibromyalgia [M79.7] Ischial bursitis, left [M70.72] Chronic, continuous use of opioids [F11.90] Tendonitis, Achilles, left [M76.62] Depression, unspecified depression type [F32.9] Order(s):diclofenac sodium (VOLTAREN) 1 % topical gelApply 4 g to affected area four times daily.Disp: 1 TubeRfl: 3 FIBROMYALGIA ONE DAY EDUCATION [6100344] Order #: [id number]: 1 Prescriptions as of 03/11/2017 Sig: ALBUTEROL SULFATE 0.63 MG/3 M* 3 (three) times a day as need* ASPIRIN 81 MG TABLET,DELAYED * Take 81 mg by mouth. EPINEPHRINE 0.3 MG/0.3 ML INJ* Inject 0.3 mg intramuscularly. FENOFIBRATE 160 MG TABLET FLUOXETINE 20 MG CAPSULE Take 20 mg by mouth. GABAPENTIN 300 MG CAPSULE HYDROCODONE 10 MG-ACETAMINOPH* LEFLUNOMIDE 20 MG TABLET Take 20 mg by mouth. LISINOPRIL 5 MG TABLET LORAZEPAM 1 MG TABLET PNEUMOVAX 23 25 MCG/0.5 ML IN* PRAVASTATIN 40 MG TABLET TRAZODONE 100 MG TABLET DICLOFENAC 1 % TOPICAL GEL Apply 4 g to affected area fo* Medication notes this encounter ALBUTEROL SULFATE 0.63 MG/3 ML SOLUTION FOR NEBULIZATION >> DARRYL Willingham CT 03/11/2017 2:18 PM >> TONI LUCAS Mar 11, 2017 2:18 PM Received from: [facility] ASPIRIN 81 MG TABLET,DELAYED RELEASE >> DARRYL Willingham CT 03/11/2017 2:18 PM >> TONI LUCAS Mar 11, 2017 2:18 PM Received from: [facility] Received Sig: Take 81 mg by mouth daily EPINEPHRINE 0.3 MG/0.3 ML INJECTION, AUTO-INJECTOR >> DARRYL Willingham CT 03/11/2017 2:18 PM >> TONI LUCAS Mar 11, 2017 2:18 PM [facility] Received Si.3 mg by Intramuscular route once as needed.. Hives, lip/tongue/throat swelling, breathing trouble, lightheadedness, passing out or other symptoms of an allergic reaction. FENOFIBRATE 160 MG TABLET >> DARRYL Willingham, CT 03/11/2017 2:18 PM >> TONI LUCAS Mar 11, 2017 2:18 PM Received from: External Pharmacy FLUOXETINE 20 MG CAPSULE >> DARRYL Willingham, CT 03/11/2017 2:18 PM >> TONI LUCAS Mar 11, 2017 2:18 PM Received from: [facility] Received Sig: Take 20 mg by mouth daily GABAPENTIN 300 MG CAPSULE >> DARRYL Willingham, CT 03/11/2017 2:18 PM >> TONI LUCAS Mar 11, 2017 2:18 PM Received from: External Pharmacy HYDROCODONE 10 MG-ACETAMINOPHEN 325 MG TABLET >> DARRYL Willingham, CT 03/11/2017 2:18 PM >> TONI LUCAS Mar 11, 2017 2:18 PM Received from: External Pharmacy LEFLUNOMIDE 20 MG TABLET >> DARRYL Willingham, CT 03/11/2017 2:18 PM >> TONI LUCAS Mar 11, 2017 2:18 PM Received from: [facility] Received Sig: Take 1 (one) tablet (20 mg total) by mouth daily. LISINOPRIL 5 MG TABLET >> DARRYL Willingham, CT 03/11/2017 2:18 PM >> TONI LUCAS Mar 11, 2017 2:18 PM Received from: External Pharmacy LORAZEPAM 1 MG TABLET >> DARRYL Willingham, CT 03/11/2017 2:18 PM >> TONI LUCAS Mar 11, 2017 2:18 PM Received from: External Pharmacy PNEUMOVAX 23 25 MCG/0.5 ML INJECTION SYRINGE >> DARRYL Willingham, CT 03/11/2017 2:18 PM >> TONI LUCAS Mar 11, 2017 2:18 PM Received from: External Pharmacy PRAVASTATIN 40 MG TABLET >> DARRYL Willingham, CT 03/11/2017 2:18 PM >> TONI LUCAS Mar 11, 2017 2:18 PM Received from: External Pharmacy TRAZODONE 100 MG TABLET >> DARRYL Willingham, CT 03/11/2017 2:18 PM >> TONI LUCAS Mar 11, 2017 2:18 PM Received from: External Pharmacy Problem List As Of Date: 03/11/2017 (None) Other instructions from your clinician: For rheumatoid arthritis: - would consider starting hydroxychloroquine or sulfasalazine or both (can take in addition to Arava). 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 This condition is associated with abnormal central processing of various peripheral stimuli including pain. Fibromyalgia is a musculoskeletal manifestation of this condition. The cornerstones of therapy for this are optimal sleep, regular aerobic exercise (e.g. pool therapy) and optimal treatment of depression or anxiety, if present. Optimal quality sleep is important. You might also benefit from relaxation techniques such as yoga or biofeedback to help deal better with stress. We emphasize that all the three aspects of the treatment (sleep, exercise, depression) be adressed simultaneously for maximum benefit and effective treatment of this condition. Doing one or the other will result in less than an optimal response to treatment. PLAN: 1. Recommend visit Fibroguide Web site https://fibroguide.med.[facility]/ 2. Recommend YouTube video by Amador Doty - chronic pain - is it all in their head? https://www.youtube.com/watch?v=[email or web address] Prescriptions ordered this encounter Disp Refills Start End DICLOFENAC 1 % TOPICAL GEL * 3 03/11/2017 Route: TOPICAL Sig: Apply 4 g to affected area four times daily. Follow-up and Disposition History Recorded Encounter Status:Closed by DANNA PINON MD on 03/11/17 CRP, C-REACTIVE Collected: 03/06/2017 Status: F Source: [facility] PROTEIN 3:36 PM [facility] REPOSITORY TYPE CODE TESTS RESULT OUT OF RANGE REFERENCE UNITS LAB CRPQT 0.0-10.0 mg/L Normal CRP, < 2.9 C-Reactive Protein Performed By: #### CCPAB, CRPQT, SEDR #### Unless otherwise noted, all testing performed by [place] [address] CLIA: [id number] Channel Sales Director: Jesu Cruz M.D. SED RATE Collected: 03/06/2017 Status: F Source: [facility] 3:36 PM [facility] REPOSITORY TYPE CODE TESTS RESULT OUT OF RANGE REFERENCE UNITS LAB SEDR 0-20 MM/hr. Normal Sed Rate 11 Performed By: #### CCPAB, CRPQT, SEDR #### Unless otherwise noted, all testing performed by [place] [address] CLIA: [id number] Channel Sales Director: Jesu Cruz M.D. CCP ANTIBODIES Collected: 03/06/2017 Status: F Source: [facility] 3:36 PM [facility] REPOSITORY TYPE CODE TESTS RESULT OUT OF REFERENCE UNITS RANGE LAB CCPAB 0.0-20.0 Unit CCP High Antibodies > 250.0 Result Comment: Reference Ranges: <20Units Negative 20-39Units Weakly Positive 40-59Units Moderative Positive >=60Units Strong Positive Test Performed by [facility] [address] [place] [address] Performed By: #### CCPAB, CRPQT, SEDR #### Unless otherwise noted, all testing performed by [place] [address] CLIA: [id number] Channel Sales Director: Jesu Cruz M.D. RHEUMATOID FACTOR Collected: 03/06/2017 Status: F Source: [facility] 3:36 PM [facility] REPOSITORY TYPE CODE TESTS RESULT OUT OF RANGE REFERENCE UNITS LAB RF Negative Abnormal Rheumatoid Positive Factor LAB RFT Rheumatoid >=1:32 Factor Titer Performed By: #### RF #### Unless otherwise noted, all testing performed by [place] [address] CLIA: [id number] Channel Sales Director: Jeus Anthony, M.D. HAND BILATERAL, 2 Observed: 03/06/2017 Status: F Source: [facility] VIEWS 3:06 PM [facility] REPOSITORY Final Report Accession No: [id number] Performed: Mar 06 2017 3:06PM Examination: HAND BILATERAL, 2 VIEWS Exam: Bilateral hands, 4 views. INDICATION: Bilateral hand pain. COMPARISON: 05/20/2013. FINDINGS: AP and oblique views of bilateral hands were obtained. There is no evidence for acute fracture or dislocation. No cortical erosions. No radiopaque foreign bodies. Minimal subchondral focal lucency involving medial aspect of the right lunate seen on the frontal projection. No other bone lesions are seen bilaterally. IMPRESSION: Minimal subchondral cystic changes of the right lunate, medially, otherwise unremarkable radiographs of bilateral hands. No significant interval changes seen when compared to previous exam. Interpreting Physician: NATALIA LANGLEY D.O. Trans: n/a : cc: ALLERGIES ALLERGIES DATE TYPE / CODE NAME / CODE REACTION SEVERITY SOURCE 07/04/2017 Drug doxycycline/[id number] Rash Unknown [place] Allergy/416 748(RXNORM) [facility] 852619([facility] ED CT) Repository 07/04/2017 Drug sulfamethoxazole/F0 Rash Unknown [place] Allergy/416 94795617(RXNORM) [facility] 785042([facility] ED CT) Repository 07/04/2017 Drug trimethoprim/R40783 Rash Unknown [place] Allergy/416 2873(RXNORM) [facility] 641126([facility] ED CT) Repository 07/04/2017 Drug adhesive Rash Unknown [place] Allergy/416 tape/[id number](RXN [place] 403068[facility]) Repository 07/04/2017 Drug azathioprine/H28588 Rash Unknown [place] Allergy/416 3419(RXNORM) [facility] 249901([facility] ED CT) Repository 04/11/2017 DRUG DOXYCYCLINE [facility] INGREDI/419 Three Repository 767354([facility] ED CT) 04/15/2016 DRUG AZATHIOPRINE [facility] INGREDI/419 Three Repository 846939([facility] ED CT) 02/16/2015 DRUG AZATHIOPRINE SODIUM Nausea High [facility] INGREDI/419 Three Repository 304771([facility] ED CT) 05/29/2011 DRUG/853311 SULFAMETHOXAZOLE-TR Rash Low [facility] 003(SNOMED IMETHOPRIM Three Repository CT) Drug/318371 doxycycline Rash [facility] 003(SNOMED [facility] CT) System Repository Drug/268040 Imuran [facility] 003(SNOMED [facility] CT) System Repository Drug/892489 Bactrim DS [facility] 003([facility] CT) System Repository ENCOUNTERS ENCOUNTERS ADMIT/DISCHARGE ACCOUNT NUMBER ADMITTING ENCOUNTER LOCATION SOURCE CLASS 02/08/2018 [id number] [address] [place] [address] ([place]) Repository 02/05/2018 [id number] Ambulatory [facility] ding:MRI Repository 01/20/2018 [id number] Ambulatory [facility] ding:RAD Repository 12/06/2017/12/07/19 [id number] Ambulatory Building:[place] [address] [facility] Three R Repository 12/03/2017 [id number] Yessi Voss [facility] Dr. Ranulfo Rodney [facility] Repository 10/14/2017 [id number] Ambulatory Building:[facility] SPORTSMEDE Three SSNER Repository 10/10/2017/10/11/19 [id number] Pasquale Xiong Ambulatory [address] Urology [facility] Repository lding:[place]: Room 3 09/03/2017 [id number] Ambulatory [facility] ding:LAB Repository 08/27/2017/08/28/19 [id number] Ambulatory [address] MDBuilding:[facility] Repository 07/30/2017 [id number] [place], [facility] Dr. Ranulfo Rodney [facility] Repository 07/05/2017/07/06/19 [id number] Ambulatory [address] ding:SDC Repository 07/04/2017 [id number] Ambulatory Building:[facility] [address] Repository 06/14/2017/06/15/[id number] Yessi Osborn [address] Repository 06/03/2017/06/04/19 [id number] Ambulatory Building:[place] [address] ORTHOGLESSNE Three R Repository 05/28/2017/05/29/19 [id number] Ambulatory [address] MDBuilding:[facility] Repository Room 1 05/08/[id number] Akilah Ambulatory [facility] Repository 05/07/[id number] Akilah Ambulatory [facility] Repository 05/07/2017 [id number] Ambulatory [facility] [email or web address] [facility] ([place]) Repository 04/22/2017/04/22/19 [id number] Ambulatory Building:[address] Repository 04/22/2017/04/22/19 [id number] Ambulatory Building:[place] [address] ORTHOGLESSUT Three R Repository 04/11/2017/04/11/19 [id number] Ambulatory Building:[address] Repository 04/09/2017 [id number] Ambulatory BuildinP [employer] [facility] ([place]) Repository 03/30/2017/03/30/[id number] Ahsan [address] lding:[address] DeptRoom: [place] [id number]: Repository A1E [id number] 03/22/2017/03/22/19 [id number] Ambulatory Building:[place] [address] ORTHOGLESSUT Three R Repository 03/11/2017/03/11/19 [id number] Ambulatory [address] Repository 03/07/2017 [id number] [facility] Repository 03/06/2017/03/06/19 [id number] Ambulatory Building:[address] One Repository 03/06/2017 [id number] [place], Ambulatory [facility] Dr. Ranulfo Rodney [facility] Repository 03/06/2017 [id number] [place], Ambulatory [facility] Dr. Ranulfo Rodney [facility] Repository 03/06/2017/03/06/19 [id number] Ambulatory Building:[place] [address] ORTHOGLESSUT Three R Repository 02/14/2017/02/15/20 [id number] Ambulatory [address] Urology [facility] Repository lding:[place]Room: Room 2 PAYERS PAYERS ENCOUNTER GUARANTOR PAYER SUBSCRIBER SOURCE 02/05/2018 ZULEMA Perez [id number] Primary ZULEMA DAVEY SANJIV, Insurance:CARESOURCEP MOWRYDOB: [place] [address]Uef: olicy Number: [id number] Hospital [id number] Repository (HP) Date:2018-01-29P [address]ATTN: [place] [address]ID: 02/05/2018 Secondary NOT GIVENUNK [place] Insurance:SELF PAY [facility] Number: Effective Repository Date:2018-01-29 01/20/2018 ZULEMA Perez [id number] Primary ZULEMA DAVEY SANJIV, Insurance:CARESOURCEP MOWRYDOB: [facility] [place] [address]Wfo: olicy Number: [id number] Hospital [id number] Repository (HP) Date:2018-01-20 [address]ATTN: [place] [address]FZ: 01/20/2018 Secondary NOT GIVENUNK [place] Insurance:SELF PAY [facility] Number: Effective Repository Date:2018-01-20 12/06/2017 ZULEMA Perez Primary ZULEMA Perez [facility] MOWRYDOB: Insurance:CARESOURCE MOWRYDOB: Three Repository MANAGED [id number] [place] MEDICAIDPolicy [place] Number: [facility] [address]Pde: [phone]) [id number] [address]Xut: (HP) Date:5775-39-03HS [phone] (HP) [address] [address]LD: 12/06/2017 Secondary ZULEMA J [facility] Insurance:CARESOURCE MOWRYDOB: Three Repository MANAGED [id number] MEDICAIDPolicy TAMICA Number: [place], [place] [id number] [address]Hel: (419) Date:5997-71-59KV [phone] (HP) [address] [place] [phone]: 12/03/2017 Primary ZULEMA J [facility] Insurance:CareSourceP MOWRYDOB: Sriram Number: [id number] [facility] [id number] T[facility]ICA Repository Date:Plan [place] Name:HealthPO [address] [address]Pkc: [phone]) [address] [place] [address] [phone] (HP) [address]DH: 10/14/2017 ZULEMA J Primary ZULEMA J [facility] MOWRYDOB: Insurance:CARESOURCE MOWRYDOB: Three Repository [id number] MANAGED [id number] [facility] MEDICAIDPolicy [address] [place] [address] Number: [place], [place] [address]Fio: (419) [id number] [phone] (HP) Date:2013-07-264008-07-99CR [address] [place] [phone]: 10/14/2017 Secondary ZULEMA J [facility] Insurance:CARESOURCE MOWRYDOB: Three Repository MANAGED [id number] MEDICAIDPolicy T[place]ICA Number: [place], [place] [id number]: (419) Date:1973-37-26LX [phone] (HP) [address] [place] [phone]: 10/14/2017 Tertiary NOT GIVENUNK [place] [facility] Insurance:HCAP/CHARIT Three Repository YPolicy Number: Effective Date:2015-09-13 - 2015-12-14 10/14/2017 Tertiary ZULEMA J [place] [facility] Insurance:HCAP/CHARIT MOWRYDOB: Three Repository YPolicy Number: [id number] Effective [address] Date:2015-09-13 - [place] 2016-03-15 [id number] 10/10/2017 ZULEMA J Primary ZULEMA J [facility] MOWRYDOB: Insurance:1500 MOWRYDOB: [facility] [id number] System [facility] [place] [id number]: Number: Effective [place] [id number]: Date:2017-02-14 - (HP) [id number] (HP)Tel: (000) Name:CD:[id number] O 000-0000 () [address] [place] [phone]: 09/03/2017 ZLUEMA J [id number] Primary ZULEMA J [place] [facility], Insurance:CARESOURCEP MOWRYDOB: Counts include 234 beds at the [facility] [address]Lyc: [facility] Number: [id number] Hospital [id number] Repository () Date:2017-09-03 [address] [facility] [facility] [place] [address]EW: 09/03/2017 Secondary NOT GIVENUNK [place] Insurance:SELF PAY [facility] Number: Effective Repository Date:2017-09-03 08/27/2017 ZULEMA J Primary ZULEMA J [facility] MOWRYDOB: Insurance:1500 MOWRYDOB: [facility] [id number] [facility] Repository [place] [id number]: Number: Effective [place] [id number]: Date:2017-05-28 - () [id number] (HP)Tel: (000) Name:CD:[id number] O 000-0000 () [address] [place] [phone]: 07/30/2017 Primary ZULEMA J [facility] Insurance:CareSourceP MOWRYDOB: Sriram Number: [id number] [facility] [id number] T[facility]ICA Repository Date:[place], [place] Name:Health [address] [address]Wvz: [phone] [address], [place] [phone] (HP) [address]YC: 07/05/2017 ZULEMA J [id number] Primary ZULEMA J [place] [facility], Insurance:CARESOURC MOWRYDOB: Counts include 234 beds at the [facility] [address]Mnv: olicy Number: [id number] [facility] [id number] Repository (HP) Date:2017-06-28 [address]ATTN: [place] [address]TV: 07/05/2017 Secondary NOT GIVENUNK [place] Insurance:SELF PAY [facility] Number: Effective Repository Date:2017-06-28 07/04/2017 ZULEMA J Primary [facility] MOWRYDOB: Insurance:CARESOURCE MOWRYDOB: Three Repository MANAGED [id number] [place] MEDICAIDPolic[address] Number: [place], [place] [address]Kok: (176) [id number] (HP) Date:[id number] [address]ER: 07/04/2017 Secondary [facility] Health Insurance:CARESOURCE MOWRYDOB: Three Repository MANAGED [id number] MEDICAIDPoly [place]ICA Number: [place], [place] [id number] [address]Jss: (419) Date:0114-38-17ND [phone] (HP) [address] [place] [phone]: 07/04/2017 Tertiary [facility] Insurance:HCAP/CHARIT Three Repository YPolicy Number: Effective Date:2015-09-13 - 2015-12-14 07/04/2017 Tertiary [facility] Health Insurance:HCAP/CHARIT MOWRYDOB: Three Repository YPolicy Number: [id number] Effective S [address] Date:2015-09-13 - [address] 2016-03-15 [id number] 06/14/2017 Primary ZULEMA J [facility] Insurance:CareSourceP MOWRYDOB: Alesha and leandro Number: [id number] [facility] [id number] [place] Repository Date:Plan [place] Name:[facility] [address] [address]Ydv: [phone] [address] [place] [address] [phone] (HP) [address]TG: 06/03/2017 ZULEMA J Primary ZULEMA J [facility] MOWRYDOB: Insurance:CARESOURCE MOWRYDOB: Three Repository MANAGED [id number] GRANT MEDICAIDPolicy [place] [address] Number: [facility] [address]Vmy: (419) [id number] [address]Yaz: (HP) Date:3514-40-85NT [phone] (HP) [address] [place] [phone]: 06/03/2017 Secondary ZULEMA J [facility] Insurance:CARESOURCE MOWRYDOB: Three Repository MANAGED [id number] MEDICAIDPolicy [place] Number: [facility] [place] [id number]: (419) Date:1395-38-49ND [phone] (HP) [address] [place] [phone]: 05/28/2017 ZULEMA J Primary ZULEMA J [facility] MOWRYDOB: Insurance:1500 MOWRYDOB: [facility] [id number] [facility] [id number]: Number: [facility] [id number]: Date:2017-04-29 - (HP) [id number] (HP)Tel: (000) Name:CD:[id number] O 000-0000 (WP) [address] [place] [phone]: 05/08/2017 Primary ZULEMA J [facility] Insurance:CareSourceP MOWRYDOB: Alesha and leandro Number: [id number] [facility] [id number] [facility] Repository Date:Plan [place] Name:Health [address] [address]Sdn: [phone] [address], [place] [phone] (HP) [address]IU: 05/07/2017 Primary ZULEMA J [facility] Insurance:CareSourceP MOWRYDOB: Alesha and leandro Number: [id number] [facility] [id number] [facility] Repository Date:Plan [place] Name:[facility] [address] [address]Usg: [phone]) [address], [place] [phone] (HP) [address]IZ: 04/22/2017 ZULEMA J Primary ZULEMA J [facility] MOWRYDOB: Insurance:CARESOURCE MOWRYDOB: Three Repository MANAGED [id number] [place] MEDICAIDPolicy [place] Number: [facility] [place] [address]Fop: (419) [id number] [address]Ear: (HP) Date:9730-39-33MQ [phone] (HP) [address] [place] [phone]: 04/22/2017 Secondary ZULEMA J [facility] Insurance:CARESOURCE MOWRYDOB: Three Repository MANAGED [id number] MEDICAIDPolicy [place] Number: [facility] [facility] [place] [id number] [phone]: ([phone]) Date:1658-22-41XY [phone] (HP) [address] [place] [phone]: 04/22/2017 ZULEMA J Primary ZULEMA J [facility] MOWRYDOB: Insurance:CARESOURCE MOWRYDOB: Three Repository MANAGED [id number] [place] MEDICAIDPolicy [place] Number: [facility] [place] [address]Ugl: (419) [id number]: (HP) Date:8811-70-84EJ [phone] (HP) [address] [place] [phone]: 04/22/2017 Secondary ZULEMA J [place] [facility] Insurance:CARESOURCE MOWRYDOB: Three Repository MANAGED [id number] [facility] [place] Number: [place] [id number]: (419) Date:8612-23-89JV [phone] (HP) [address] [place] [phone]: 04/11/2017 ZULEMA J Primary ZULEMA J [facility] MOWRYDOB: Insurance:CARESOURCE MOWRYDOB: Three Repository MANAGED [id number] GRANT MEDICAIDPolicy [place], [place] Number: [facility] [place] [address]Kgm: (419) [id number] [address]Ezl: (HP) Date:4868-98-62FK [phone] (HP) [address] [place] [phone]: 04/11/2017 Secondary ZULEMA J [place] [facility] Insurance:CARESOURCE MOWRYDOB: Three Repository MANAGED [id number] [facility]ID[facility] [place] Number: RADHA ANGELES [id number]: ([phone]) Date:7388-03-00CJ [phone] (HP) [address] [place] [phone]: 03/30/2017 Primary ZULEMA J [facility] Insurance:CareSourceP MOWRYDOB: Sriram Number: [id number] [facility] [id number] [place] Repository Date:Plan [place], [place] Name:[facility] [address] [address]Ywe: [phone], [place] [phone] (HP) [address]ML: 03/22/2017 ZULEMA J Primary ZULEMA J [facility] MOWRYDOB: Insurance:CARESOURCE MOWRYDOB: Three Repository MANAGED [id number] [place] MEDICAIDPolicy [place], [place] Number: [place] [address]Oum: [address]Xrb: (419) [id number] (HP) Date:9553-12-47AJ [address] (HP) [address] [place] [phone]: 03/22/2017 Secondary ZULEMA J [facility] Insurance:CARESOURCE MOWRYDOB: Three Repository MANAGED [id number] [facility], Number: [place] [address]Gpx: [id number] Date:7414-68-26DS [address]OX (HP) [address] [place] [phone]: 03/07/2017 ZULEMA J Primary ZULEMA J [facility] MOWRYDOB: Insurance:CARESOURCE MOWRYDOB: Three Repository MANAGED [id number] [place] MEDICAIDPolicy [place] Number: [place] [address]Svg: [address]Gat: (419) [id number] (HP) Date:7987-62-50GV [address]OX (HP) [address] [place] [phone]: 03/07/2017 Secondary ZULEMA J [facility] Insurance:CARESOURCE MOWRYDOB: Three Repository MANAGED [id number] MEDICAIDPolicy [facility], Number: [place] [address]Agc: [id number] Date:1854-16-99WG BOX (HP) [address] [place] [phone]: 03/06/2017 Primary ZULEMA J [facility] Insurance:CareSourceP MOWRYDOB: Alesha and leandro Number: [id number] [facility] [id number] [place] Repository Date:Nirmal [place], [place] Name:Health[address] [address]Wqr: [phone] [address], [place] [phone] (HP) [address]LA: 03/06/2017 Primary ZULEMA J [facility] Insurance:CareSourceP MOWRYDOB: Sriram Number: [id number] [facility] [id number] [place] Repository Date:[place], [place] Name:HealthPO [address] [address]Wpg: [phone], [place] [phone] (HP) [address]YN: 03/06/2017 ZULEMA J Primary ZULEMA J [facility] MOWRYDOB: Insurance:CARESOURCE MOWRYDOB: Three Repository [id number] MANAGED [id number] GRANT MEDICAIDPolicy [place], [place] Number: [place] [id number]: [address]Oyk: [phone] [id number] [phone] (HP) Date:8968-59-77TY BOX (HP) [address] [place] [phone]: 03/06/2017 Secondary ZULEMA J [facility] Insurance:CARESOURCE MOWRYDOB: Three Repository MANAGED [id number] MEDICAIDPolicy [place], Number: [place] [address]Hfg: [id number] Date:4367-35-59LN [address] (HP) [address] [address]YJ: 02/14/2017 ZULEMA J Primary ZULEMA J [employer] MOWRYDOB: Insurance:1500 MOWRYDOB: [facility] [id number] [facility] [id number] [facility] Repository [address] Number: [address] [address]Nht: Date:2016-08-23 [phone]: [id number] (HP) Name:CD:[id number] (HP)Tel: [phone] IBA [address], [place] [phone] (WP) [phone]:
== END ==
PROVIDERS: Referring Provider Anesthesiology Pain Medicine; Visit Provider Anesthesiology Pain Medicine
DX: M25.552 Pain in left hip (principal)
CPT/HCPCS: 73502

== ENCOUNTER → 2018-02-05 09:25 | Outpatient (CLI) | payer MEDICAID, SELFPAY ==
--- NOTE | 2018-02-05 09:40 | MRI_ITS ---
STUDY: MRI LUMBAR SPINE WITHOUT CONTRAST REASON FOR EXAM: Female, 52 years old. back pain radiates into legs, L and gt;R few years. TECHNIQUE: Standardized fat and water weighted pulse sequences were obtained in the sagittal and axial planes. COMPARISON: X-ray dated July 05, 2017 FINDINGS: T12-L1: There is mild disc space narrowing and endplate spondylosis. There is no significant disc herniation, central canal or foraminal stenosis. Normal lumbar lordosis. There is no substantial scoliosis. Normal conus medullaris that terminates at the L1 L1-2: There is mild disc space narrowing and endplate spondylosis. There is no significant disc herniation, central canal or foraminal stenosis. L2-3: There is minimal disc space narrowing and endplate spondylosis. There is no significant disc herniation, central canal or foraminal stenosis. L3-4: There is minimal disc space narrowing and endplate spondylosis. There is no significant disc herniation, central canal or foraminal stenosis. There is mild facet arthropathy L4-5: There is mild disc space narrowing and endplate spondylosis. There is mild disc bulge without significant central canal or foraminal stenosis. There is mild facet arthropathy. L5-S1: There is minimal disc space narrowing and endplate spondylosis. There is no significant disc herniation, central canal or foraminal stenosis. Normal visualized sacral ala. Normal visualized paraspinous soft tissue structures. MRI/Spine Lumbar (Routine) IMPRESSION: Mild degenerative changes. Electronically Signed: Aviva Ca MD at 9:45 EST Tel , Service support ,
--- OUTSIDE RECORDS SUMMARY | 2018-03-24 05:34 | XMS RPT_ITS | Summary of Care ---
:1965 Author Organization [facility] Address [address] [place] [address] Phone Care Team Providers Name Role Phone Isbell Bairon Mireille DO Primary Care Provider Reason for Visit Reason Comments Cough Encounter Details Date Type Department Care Team Description 02/08/2018 Office Visit [facility] Erika Cordova, Acute maxillary sinusitis, recurrence not specified (Primary Dx); [address] [place] Acute bronchitis, [place] [address] [place] [address] [phone] Allergies Active Allergy Reactions Severity Noted Date Comments Bactrim Rash 05/29/2011 Doxycycline Rash 02/08/2018 Azathioprine 04/15/2016 as of this encounter Medications Prescription Sig. Disp. Refills Start End Status Date Date albuterol (2.5 MG/3ML) 0.63 mg by Active 0.083% inhalation Nebulization solution route every 8 hours as needed.. aspirin 81 MG Chew Tab take 81 mg by Active mouth daily.. atenolol 25 MG Tab take 25 mg by Active mouth daily.. EPINEPHrine (EPIPEN 0.3 mg by Active 2-DOMONIQUE) 0.3 MG/0.3ML Intramuscular Solution Auto-injector route once as needed.. Hives, lip/tongue/throat swelling, breathing trouble, lightheadedness, passing out or other symptoms of an allergic reaction. fenofibrate 54 MG Tab take 54 mg by Active mouth daily.. Take with food gabapentin 300 MG Cap take 300 mg by Active mouth 3 times daily.. lisinopril 5 MG Tab take 5 mg by Active mouth daily.. LORazepam 1 MG Tab take 1 mg by Active mouth every 6 hours as needed for Anxiety.. methylPREDNISolone 4 take 4 mg by Active MG Tab mouth As directed as needed (For flare ups).. hydroCODone-acetaminop take 1 tablet by Active hen (NORCO) 10-325 MG mouth every 6 Tab hours as needed.. pravastatin 20 MG Tab take 20 mg by Active mouth daily.. traZODone 100 MG Tab take 100 mg by Active mouth at bedtime as needed for Sleep.. albuterol 108 (90 take 2 puffs by 1 Inhaler 0 04/15/19 Active Base) MCG/ACT Aero inhalation every 17 Soln 4 hours as needed for Wheezing.. promethazine-dextromet take 5 mL by 118 mL 0 04/15/19 Active horphan 6.25-15 MG/5ML mouth every 6 17 Syrup hours as needed for Cough.. amoxicillin-clavulanat Take 1 tablet by 20 tablet 0 02/09/20 Active e 875-125 MG Tab mouth every 12 18 018 tabletIndications: hours for 10 Acute maxillary days. sinusitis, recurrence not specified predniSONE 20 MG Tab Take 2 tablets by 10 tablet 0 02/09/20 Active tabletIndications: mouth daily for 5 18 018 Acute bronchitis, days. unspecified organism levofloxacin 750 MG take 1 tablet by 10 tablet 0 04/15/19 Discontinued Tab mouth daily.. 17 018 predniSONE 20 MG Tab take 1 tablet by 10 tablet 0 04/15/19 Discontinued mouth 2 times 17 018 daily.. as of this encounter Active Problems Problem Noted Date Dysmenorrhea 06/06/2011 Overview: Treated with Micronor and ibuprofen Social History Tobacco Use Types Packs/Day Years Used Date Current Every Day Smoker 1 28 Smokeless Tobacco: Never Used Alcohol Use Drinks/Week oz/Week Comments No Sex Assigned at Date Recorded Not on file as of this encounter Last Filed Vital Signs Vital Sign Reading Time Taken Blood Pressure 130/85 02/08/2018 12:09 PM EST Pulse 78 02/08/2018 12:09 PM EST Temperature 36.3 ??C (97.4 ??F) 02/08/2018 12:09 PM EST Respiratory Rate - - Oxygen Saturation 96% 02/08/2018 12:09 PM EST Inhaled Oxygen Concentration - - Weight 79.4 kg (175 lb) 02/08/2018 12:09 PM EST Height 160 cm (5' 3) 02/08/2018 12:09 PM EST Body Mass Index 31 02/08/2018 12:09 PM EST in this encounter Instructions Patient Instructions - Erika Cordova PA-C - 02/08/2018 12:30 PM EST Bronchitis, Antibiotic Treatment (Adult) Bronchitis is an infection of the air passages (bronchial tubes) in your lungs. It often occurs whenyou have a cold. This illness is contagious during the first few days and is spread through the air by coughing and sneezing, or by direct contact (touching the sick person and then touching your own eyes, nose, or mouth). Symptoms of bronchitis include cough with mucus (phlegm) and low-grade fever. Bronchitis usually lasts 7 to 14 days. Mild cases can be treated with simple home remedies. More severe infection is treated with an antibiotic. Home care Follow these guidelines when caring for yourself at home: ?? If your symptoms are severe, rest at home for the first 2 to 3 days. When you go back to your usual activities, don't let yourself get too tired. ?? Do not smoke. Also avoid being exposed to secondhand smoke. ?? You may use xium-zia-nuryfyi medicines to control fever or pain, unless another medicine was prescribed. If you have chronic liver or kidney disease or have ever had a stomach ulcer or gastrointestinal bleeding, talk with your healthcare provider before using these medicines. Also talk to your provider if you are taking medicine to prevent blood clots. Aspirin should never be given to anyone younger than 18 years of age who is ill with a viral infection or fever. It may cause severe liver or brain damage. ?? Your appetite may be poor, so a light diet is fine. Avoid dehydration by drinking 6 to 8 glasses of fluids per day (such as water, soft drinks, sports drinks, juices, tea, or soup). Extra fluids will help loosen secretions in the nose and lungs. ?? Zkfr-dxp-tudjknd cough, cold, and sore-throat medicines will not shorten the length of the illness, but they may be helpful to reduce symptoms. (Note: Do not use decongestants if you have high bloodpressure.) ?? Finish all antibiotic medicine. Do this even if you are feeling better after only a few days. Follow-up care Follow up with your healthcare provider, or as advised. If you had an X-ray or ECG (electrocardiogram), a specialist will review it. You will be notified of any new findings that may affect your care. If you are age 65 or older, or if you have a chronic lung disease or condition that affects your immune system, or you smoke, ask??your healthcare provider about getting a??pneumococcal vaccine and a yearly flu shot (influenza vaccine). When to seek medical advice Call your healthcare provider right away if any of these occur: ?? Fever of 100.4??F (38??C) or higher, or as directed by your healthcare provider ?? Coughing up increased amounts of colored sputum ?? Weakness, drowsiness, headache, facial pain, ear pain, or a stiff neck Call 911 Call 911 if any of these occur. ?? Coughing up blood ?? Worsening weakness, drowsiness, headache, or stiff neck ?? Trouble breathing, wheezing, or pain with breathing Date Last Reviewed: 11/07/2014 ?? [id number] [employer]. [address] [place] [address]. All rights reserved. This information is not intended as a substitute for professional medical care. Always follow your healthcare professional's instructions. in this encounter Progress Notes Erika Cordova PA-C - 02/08/2018 12:05 PM ESTFormatting of this note may be different from the original. HPI Valerie Anaya is a 52 y.o. female who presents today for complaint of nasal congestion and cough for thepast 2-3 weeks. Associated symptoms include headache, wheezing, fatigue. Denies ear pain, sore throat, fever/chills. Self treatment - albuterol via nebulizer. ROS Constitutional: Denies Fever, chills Eyes: Denies visual change or eye discharge Head/Ear/Nose/Throat: Denies earache or sore throat Respiratory: Denies shortness of breath Cardiovascular: Denies chest pain Gastrointestinal: Denies abdominal pain, Denies nausea, Denies vomiting, Denies diarrhea Musculoskeletal: Denies Joint pain, Denies muscle pain Skin: Denies Rash Neurological: Denies focal neuro symptoms Social History Substance Use Topics ??? Smoking status: Current Every Day Smoker Packs/day: 1.00 Years: 28.00 ??? Smokeless tobacco: Never Used ??? Alcohol use No Family History Problem Relation Age of Onset ??? Diabetes Father ??? Hypertension Mother ??? Ovarian Cancer Sister ??? Stroke Other grandmother Patient's medical history reviewed. EXAM Blood pressure 130/85, pulse 78, temperature 97.4 ??F (36.3 ??C), temperature source Temporal, height 1.6 m (5' 3), weight 79.4 kg (175 lb), SpO2 96 %. Primary Assessment: Airway patent. Respirations unlabored, Normal respiratory effort Constitutional: Vital signs reviewed. Well appearing. No distress Psychiatric: Mental status appropriate. Normal affect Skin: Warm and dry. No rashes noted Eyes: Conjunctiva clear. No photophobia HENT: Normocephalic. Ears - Left tympanic membrane and canal clear, Right tympanic membrane and canal clear. Posterior pharynx clear. Lymphatics: no anterior cervical lymphadenopathy, no posterior cervical lymphadenopathy Cardio: regular rate and rhythm. No murmurs, rubs, or gallop Thorax/ Respiratory: Respiratory effort non-labored, lungs with wheezes in all lung anderson Musculoskeletal: Neck supple Neurologic: Alert and Oriented Diagnosis/ Plan: Valerie was seen today for cough. Diagnoses and all orders for this visit: Acute maxillary sinusitis, recurrence not specified - amoxicillin-clavulanate 875-125 MG Tab tablet; Take 1 tablet by mouth every 12 hours for 10 days. Acute bronchitis, unspecified organism - predniSONE 20 MG Tab tablet; Take 2 tablets by mouth daily for 5 days. Tylenol or Motrin as needed for pain/fever, OTC decongestant/cough medicine as needed. Follow up with PCP if no improvement in 4-5 days. If symptoms worsen patient was advised to follow up in our office or the Emergency Dept. Benefits, Risks, Contraindications, and Complications of recommended treatments were explained. The patient understands and agrees to proceed with plan. Erika Cordova PA-C 02/08/2018 in this encounter Plan of Treatment Health Maintenance Due Date Last Done Comments HEPATITIS C VIRUS SCREENING 1965 HIV SCREENING DISCUSSION 1977 TETANUS 1982 TDAP (ADULT) 12/22/1983 LIPID SCREENING 2004 MAMMOGRAM SCREENING DISCUSSION 03/09/2010 03/09/2009, 01/01/2008, 12/30/2006, Additional history exists PAP SMEAR DISCUSSION 06/05/2012 06/06/2011, 09/18/2006, 07/02/2005, Additional history exists COLON CANCER SCREENING DISCUSSION 2014 INFLUENZA VACCINE (#1) 2017 as of this encounter Visit Diagnoses Diagnosis Acute maxillary sinusitis, recurrence not specified - Primary Acute bronchitis, unspecified organism
--- OUTSIDE RECORDS SUMMARY | 2018-03-24 05:35 | XMS RPT_ITS ---
:1965 Author Organization OHIP Support Name Relationship Address Phone JASON, CORDELL Unavailable Unavailable + HÉCTOR, ARIANNE Unavailable [address] + [place] [address] JASON, CORDELL Unavailable [address] [facility] + [place] [address] UE Unavailable Unavailable Unavailable D Unavailable Unavailable Unavailable JASON, CORDELL Unavailable Unavailable + [place] [address] JASON, CORDELL Unavailable Unavailable Unavailable HÉCTOR, ARIANNE Unavailable [address] [place] [address] JASON, CORDELL Unavailable Unavailable + HÉCTOR, ARIANNE Unavailable [address] + [place] [address] JASON, CORDELL Unavailable Unavailable Unavailable HÉCTOR, ARIANNE Unavailable [address] [place] [address] D Unavailable Unavailable Unavailable JASON, CORDELL Unavailable Unavailable + [place] [address] JASON, CORDELL Unavailable Unavailable + HÉCTOR ARIANNE Unavailable [address] + [place] [address] D Unavailable Unavailable Unavailable JASON, CORDELL Unavailable Unavailable + [place] [address] JASON, CORDELL Unavailable Unavailable + HÉCTOR, ARIANNE Unavailable [address] + [place] [address] JASON, CORDELL Unavailable Unavailable + HÉCTOR, ARIANNE Unavailable [address] + [place] [address] JASON, CORDELL Unavailable Unavailable + HÉCTOR, ARIANNE Unavailable [address] + [place] [address] JASON, CORDELL Unavailable Unavailable + HÉCTOR, ARIANNE Unavailable [address] + [place] [id number] JASON, CORDELL Unavailable Unavailable + HÉCTOR, ARIANNE Unavailable [address] + [place] [address] JASON, CORDELL Unavailable Unavailable + HÉCTOR, ARIANNE Unavailable [address] + [place] [address] JASON, CORDELL Unavailable Unavailable + HÉCTOR, ARIANNE Unavailable [address] + [place] [address] JASON, CORDELL Unavailable Unavailable + HÉCTOR, ARIANNE Unavailable [address] + [place] [address] JASON, CORDELL Unavailable Unavailable + HÉCTOR, ARIANNE Unavailable [address] + [place] [address] JASON, CORDELL Unavailable Unavailable + HÉCTOR, ARIANNE Unavailable [address] + [place] [address] Care Team Providers Name Role Phone Revill, Dr. Mir Giordano Attending Unavailable Revill, Dr. Mir Giordano Admitting Unavailable Akilah, Dr. Ranulfo Kendrick Admitting Unavailable Akilah, Dr. Ranulfo Kendrick Attending Unavailable Akilah, Dr. Ranulfo Kendrick Admitting Unavailable Akilah, Dr. Ranulfo Kendrick Attending Unavailable Stagavin, Dr. Ranulfo Rodney Admitting Unavailable Stadnabril, Dr. Ranulfo Rodney Attending Unavailable Stadnabril, Dr. Ranulfo Rodney Admitting Unavailable Stadnick, Dr. Ranulfo Rodney Attending Unavailable Basali, Dr. Meera Valera Admitting Unavailable Basali, Dr. Meera Valera Attending Unavailable Stadnabril, Dr. Ranulfo Rodney Admitting Unavailable Stadnick, Dr. Ranulfo Rodney Attending Unavailable Pasquale Xiong Attending Unavailable Ranulfo Isbell Primary Care Unavailable Pasquale Xiong Admitting Unavailable Niles Baig Attending Unavailable Ranulfo Isbell Primary Care Unavailable Niles Baig Attending Unavailable Ranulfo Isbell Primary Care Unavailable STADNICK, RANULFO ALEJANDRO Attending Unavailable ISBELLRANULFO ESCOTO Primary Care Unavailable MOROCCO, ZEE Attending Unavailable ISBELL, RANULFO SARABIA Primary Care Unavailable STADNICK, RANULFO ALEJANDRO Attending Unavailable ISBELLRANULFO ESCOTO Primary Care Unavailable MOROCCO, ZEE Attending Unavailable RANULFO ISBELL Primary Care Unavailable STADNICK, RANULFO ALEJANDRO Attending Unavailable ISBELL, RANULFO SARABIA Primary Care Unavailable EMILY SALAS Attending Unavailable ISBELL, RANULFO SARABIA Primary Care Unavailable STADNICK, RANULFO ALEJANDRO Attending Unavailable ISBELL, RANULFO SARABIA Primary Care Unavailable STADNICK, RANULFO ALEJANDRO Attending Unavailable ISBELL, RANULFO SARABIA Primary Care Unavailable GAGE, JESUS Attending Unavailable ISBELLRANULFO ESCOTO Referring Unavailable GAGE, JESUS Attending Unavailable ISBELLRANULFO ESCOTO Referring Unavailable ARNOLDWALKER Attending Unavailable SELF, SELF Referring Unavailable Basali, Ayman Attending Unavailable Basali, Ayman Referring Unavailable Akilah, Ranulfo Primary Care Unavailable Basali, Ayman Attending Unavailable Basali, Ayman Referring Unavailable Ranulfo Isbell Primary Care Unavailable Basali, Ayman Attending Unavailable Basali, Ayman Referring Unavailable IsbellRanulfo escoto Primary Care Unavailable Basali, Ayman Attending Unavailable Basali, Ayman Referring Unavailable Isbell, Ranulfo Primary Care Unavailable PROBLEMS PROBLEMS DATE TYPE CONDITION / CODE ATTENDING STATUS SOURCE 02/08/2018 Admitting Cough / 28() WALKER WILEY Active [facility] ([place]) Repository 06/14/2015 Admitting Rheumatoid STARANULFO OVIEDO [facility] diagnosis arthritis, ALEJANDRO Three unspecified / Repository M06.9(ICD-10) 12/06/2017 Admitting Other specified STARANULFO OVIEDO [facility] diagnosis disorders of muscle ALEJANDRO Three / M62.89(ICD-10) Repository 09/03/2017 Unknown F11.20 - Opioid Basali, Kaurman Active [facility] dependence, Community uncomplicated / Hospital F11.20(ICD-10) Repository 05/07/2017 Admitting Major depressive TOO JESUS [facility] ([employer]) Diagnosis disorder, System ([place]) recurrent, moderate Repository (HCC) / F33.1(ICD-10) 05/07/2017 Admitting Panic disorder JESUS GAGE [employer] ([employer]) Diagnosis (episodic System ([place]) paroxysmal anxiety) Repository / F41.0(ICD-10) 04/22/2017 Admitting Allergic contact MOROCCO, ZEE Active [facility] diagnosis dermatitis, Three unspecified cause / Repository L23.9(ICD-10) 04/22/2017 Admitting Rheumatoid RANULFO SAUER Active [facility] diagnosis arthritis with ALEJANDRO Three rheumatoid factor, Repository unspecified / M05.9(ICD-10) 04/11/2017 Admitting Rash and other ZEE LEDEZMA Active [facility] diagnosis nonspecific skin Three eruption / Repository R21(ICD-10) PROCEDURES PROCEDURES No Procedure Records FoundRESULTS RESULTS HEPATIC FUNCTION Collected: 02/26/2018 Status: F Source: [facility] 12:14 PM [facility] REPOSITORY TYPE CODE TESTS RESULT OUT OF RANGE REFERENCE UNITS LAB AST 0-45 U/L Normal AST 35 (SGOT) Result Comment: This test result might be falsely depressed or falsely elevated on samples drawn from patients taking Sulfasalazine and Sulfapyridine. Venipuncture should occur prior to taking either of these drugs. LAB ALT 14-65 U/L Normal ALT (SGPT) 42 Result Comment: This test result might be falsely depressed or falsely elevated on samples drawn from patients taking Sulfasalazine and Sulfapyridine. Venipuncture should occur prior to taking either of these drugs. LAB ALKP 40-150 U/L Low Alkaline Phosphatase 33 LAB BILIT 0.3-1.2 mg/dL Low Bilirubin,Total 0.2 LAB BILID 0.0-0.4 mg/dL Normal Bilirubin, Direct < 0.1 LAB PROT 6.0-8.0 g/dL Normal Protein, Total 7.2 LAB ALB 3.2-5.2 g/dL Normal Albumin 3.7 Performed By: #### BUNCR, HEPF, CBCDIF #### Unless otherwise noted, all testing performed by [facility] [address] [place], [place] [address] CLIA: [id number] Copy Chief: Jesu Cruz M.D. BUN AND CREATININE Collected: 02/26/2018 Status: F Source: [facility] 12:14 PM [facility] REPOSITORY TYPE CODE TESTS RESULT OUT OF RANGE REFERENCE UNITS LAB BUN 8-25 mg/dL BUN Normal 17 LAB CREA 0.40-1.10 mg/dL High Creatinine 1.13 LAB eGFR >60 ml/min/1.7 Low 3sq.m eGFR,NonAfrican- 50 Kos[place] Result Comment: Non- GFR Calc eGFR is [...] with caution. LAB eGFRB ml/min/1.73sq.m eGFR, Normal -Kosovan >=60 Result Comment: GFR Calc Performed By: #### BUNCR, HEPF, CBCDIF #### Unless otherwise noted, all testing performed by [place] [address] [place], [place] [address] CLIA: [id number] Copy Chief: Jesu Cruz M.D. CBC WITH DIFF Collected: 02/26/2018 Status: F Source: [facility] 12:14 PM [facility] REPOSITORY TYPE CODE TESTS RESULT OUT OF REFERENCE UNITS RANGE LAB WBC 3.4-10.6 K/mcL WBC Normal 5.2 LAB RBC 3.7-5.0 M/mcL RBC Normal 3.93 LAB HGB 11.6-15.4 g/dL Hemoglobin Normal 12.3 LAB HCT 34.4-44.8 % Hematocrit Normal 35.9 LAB MCV 82.6-98.9 FL MCV Normal 91.4 LAB MCH 27.9-33.9 pg MCH Normal 31.2 LAB MCHC 33.1-35.1 g/dL MCHC Normal 34.2 LAB RDW 10.0-14.4 % RDW Normal 13.6 LAB PLT 162-402 K/mcL Platelet Count Normal 367 LAB MPV 7.0-10.6 FL MPV Normal 8.1 LAB NEUT# 1.2-6.9 K/mcL Neutrophil # Normal 2.2 LAB LYMPH# 1.0-3.7 K/mcL Lymphocyte # Normal 2.1 LAB MONO# 0.1-0.6 K/mcL Monocyte # High 0.7 LAB EOS# 0-0.5 K/mcL Eosinophil # Normal 0.1 LAB BASO# 0-0.2 K/mcL Basophil # Normal 0.1 LAB META 0 % Metamyelocyte High 1.0 LAB SEGNEU% % Segmented Neut % Normal 41.8 Result Comment: Smear reviewed to verify automated differential> LAB LYMP% % Normal Lymphocyte% 40.8 LAB MO% % Normal Monocyte % 14.3 LAB EO% % Normal Eosinophil % 2.0 LAB BA% % Normal Basophil % 1.4 Performed By: #### BUNCR, HEPF, CBCDIF #### Unless otherwise noted, all testing performed by [facility] [address] [place], [place] [address] CLIA: [id number] Copy Chief: Jesu Cruz M.D. SPINE LUMBAR Observed: 02/05/2018 Status: F Source: [place] (ROUTINE) 9:40 AM [facility] REPOSITORY [facility] Imaging Services [address] [place] [address] Spine Lumbar (Routine) MR#: [id number] Acct: [id number] Name: HÉCTORZULEMA Ana Rep #: [id number] : 1965 F 52 From: [facility] [place] PCP: Ranulfo Isbell MD Status: REG CLI Study: Spine Lumbar (Routine) Date of Exam: 02/05/18 Exam# [id number] Ordering Dr: Meera Osborn MD STUDY: MRI [...] CC: Meera Osborn MD; Ranulfo Isbell MD Supervising Producer: Signed HIP, UNI W/ PELVIS Observed: 01/20/2018 Status: F Source: [place] 2-3 VIEWS 2:59 PM [facility] REPOSITORY [facility] Imaging Services [address] [place] [address] HIP, UNI W/ Pelvis 2-3 Views MR#: [id number] Acct: [id number] Name: ZULEMA ANAYA Rep #: [id number] : 1965 F 52 From: Zuhair Olivares DO PCP: Ranulfo Isbell MD Status: REG CLI Study: HIP, UNI W/ Pelvis 2-3 Views Date of Exam: 01/20/18 Exam# [id number] Ordering Dr: Meera Osborn MD STUDY: X-RAY [...] Zuhair Olivares DO at 16:13 EST Tel [phone], Service support , CC: Meera Osborn MD; Ranulfo Isbell MD Supervising Producer: Signed CBC WITH DIFF Collected: 12/03/2017 Status: F Source: [facility] 9:31 AM [facility] REPOSITORY TYPE CODE TESTS RESULT OUT OF [...] Unless otherwise noted, all testing performed by [place] [address] CLIA: [id number] Copy Chief: Jesu Cruz M.D. HEPATIC FUNCTION Collected: 12/03/2017 Status: F Source: [facility] 9:31 AM [facility] REPOSITORY TYPE CODE TESTS RESULT OUT OF [...] Unless otherwise noted, all testing performed by [place] [address] CLIA: [id number] Copy Chief: Jesu Cruz M.D. BUN AND CREATININE Collected: 12/03/2017 Status: F Source: [facility] 9:31 AM [facility] REPOSITORY TYPE CODE TESTS RESULT OUT OF RANGE REFERENCE UNITS LAB BUN 8-25 mg/dL BUN Normal 20 LAB CREA 0.40-1.10 mg/dL High Creatinine 1.14 LAB eGFR >60 ml/min/1.7 Low 3sq.m eGFR,NonAfrican- 50 [place] Result Comment: Non- GFR Calc eGFR is [...] with caution. LAB eGFRB ml/min/1.73sq.m eGFR, Normal -Kosovan >=60 Result Comment: GFR Calc Performed By: #### CBCDIF, BUNCR, HEPF #### Unless otherwise noted, all testing performed by [place] [address] [place], [place] [address] CLIA: [id number] Copy Chief: Jesu Cruz M.D. URINE DRUG SCREEN Collected: 09/03/2017 Status: F Source: [place] (VISTA) 11:33 AM [facility] REPOSITORY Order Comment: Comments: URINE TOXICOLOGY [id number] RUN LOWEST TEST List of Drugs Taken [...] Normal NEGATIVE Performed By: #### L505.5000 #### [facility] [address], [address] MISCELLANEOUS LAB Collected: 09/03/2017 Status: F Source: [place] PROCEDURE 11:33 AM [facility] REPOSITORY Order Comment: Comments: URINE TOXICOLOGY [id number] RUN LOWEST TEST Test(s) Ordered: URINE TOXICOLOGY [id number] RUN LOWEST TEST TYPE CODE TESTS RESULT OUT OF RANGE REFERENCE UNITS LAB L801.1541 Normal [facility] Result Comment: TEST RESULT UNITS REF INTERVAL [id number] 6+Oxycodone-Bund Amphetamines, Urine Negative ng/mL Qnecbu=8665 Amphetamine test includes Amphetamine and Methamphetamine. Barbiturate Negative ng/mL Rigivi=879 Benzodiazepines Negative ng/mL Dqawch=714 Cannabinoids Negative ng/mL Cutoff=20 Cocaine (Metabolite) Negative ng/mL Bijhsn=428 Opiates Negative ng/mL Nzdaod=066 Opiate test includes Codeine, Morphine, Hydromorphone, Hydrocodone. Please Note: Confirmation performed by Mass Spectrometry Oxycodone/Oxymorphone, Urine Negative ng/mL Lhcvey=148 Test includes Oxycodone and Oxymorphone TESTING PERFORMED AT [facility]. ORIGINAL REPORT ON FILE IN LAB CONTAINS ADDITIONAL TEST SITE INFORMATION. Performed By: #### L801.1541 #### [facility] [address] [place], [place], [address] CBC WITH DIFF Collected: 07/30/2017 Status: F Source: [facility] 11:33 AM [facility] REPOSITORY TYPE CODE TESTS RESULT OUT OF [...] Unless otherwise noted, all testing performed by [place] [address] [place], [place] [address] CLIA: [id number] Copy Chief: Jesu Cruz M.D. BUN AND CREATININE Collected: 07/30/2017 Status: F Source: [facility] 11:33 AM [facility] REPOSITORY TYPE CODE TESTS RESULT OUT OF RANGE REFERENCE UNITS LAB BUN 8-25 mg/dL BUN Normal 19 LAB CREA 0.40-1.10 mg/dL Normal Creatinine 1.05 LAB eGFR >60 ml/min/1.7 Low 3sq.m eGFR,NonAfrican- 55 [place] Result Comment: Non- GFR Calc eGFR is [...] with caution. LAB eGFRB ml/min/1.73sq.m eGFR, Normal -Kosovan >=60 Result Comment: GFR Calc Performed By: #### CBCDIF, BUNCR, HEPF #### Unless otherwise noted, all testing performed by [place] [address] CLIA: [id number] Copy Chief: Jesu Cruz M.D. HEPATIC FUNCTION Collected: 07/30/2017 Status: F Source: [facility] 11:33 AM [facility] REPOSITORY TYPE CODE TESTS RESULT OUT OF [...] Unless otherwise noted, all testing performed by [address] [place] [address] CLIA: [id number] Copy Chief: Jesu Cruz M.D. SPINE 1 VIEW ANY Observed: 07/04/2017 Status: F Source: [place] LEVEL 11:20 PM [facility] REPOSITORY [facility] Imaging Services [address] [place] [address] Spine 1 View Any Level MR#: [id number] Acct: [id number] Name: ZULEMA ANAYA Rep #: [id number] : 1965 F 51 From: Frederick Magdaleno MD PCP: Ranulfo Isbell MD Status: [facility] Study: Spine 1 View Any Level Date of Exam: 07/05/17 Exam# [id number] Ordering Dr: Meera Osborn MD STUDY: X-RAY - LUMBAR SPINE REASON FOR EXAM: Female, 51 years old. Epidural block. TECHNIQUE: Single coned-down view(s) of the lumbar spine were obtained. COMPARISON: None FINDINGS: Intraoperative imaging provided for epidural block. RAD/Spine 1 View Any Level IMPRESSION: Imaging provided for epidural block. Electronically Signed: Frederick Magdaleno MD at 14:25 EDT Tel [phone], Service support , CC: Meera Osborn MD; Ranulfo Isbell MD Supervising Producer: Signed CHEST PA AND LATERAL Observed: 05/08/2017 Status: F Source: [facility] 1:45 PM [facility] REPOSITORY Final Report Accession No: [id number] Performed: May 08 2017 1:45PM Examination: [...] WITH DIFF Collected: 05/07/2017 Status: F Source: [facility] 4:57 PM [facility] REPOSITORY TYPE CODE TESTS RESULT OUT OF [...] Unless otherwise noted, all testing performed by [place] [address], [place] [address] CLIA: [id number] Copy Chief: Jesu Cruz M.D. BUN AND CREATININE Collected: 05/07/2017 Status: F Source: [facility] 4:57 PM [facility] REPOSITORY TYPE CODE TESTS RESULT OUT OF RANGE REFERENCE UNITS LAB BUN 8-25 mg/dL BUN Normal 20 LAB CREA 0.40-1.10 mg/dL High Creatinine 1.12 LAB eGFR >60 ml/min/1.7 Low 3sq.m eGFR,NonAfrican- 51 [place] Result Comment: Non- GFR Calc eGFR is [...] with caution. LAB eGFRB ml/min/1.73sq.m eGFR, Normal -Kosovan >=60 Result Comment: GFR Calc Performed By: #### CBCDIF, HEPF, BUNCR #### Unless otherwise noted, all testing performed by [address] [address] CLIA: [id number] Copy Chief: Jesu Cruz M.D. HEPATIC FUNCTION Collected: 05/07/2017 Status: F Source: [facility] PANEL 4:57 PM [facility] REPOSITORY TYPE CODE TESTS RESULT OUT OF [...] Unless otherwise noted, all testing performed by [address] [place], [place] [address] CLIA: [id number] Copy Chief: Jesu Cruz M.D. CHEST PA AND LATERAL Observed: 03/30/2017 Status: F Source: [facility] 11:55 AM [facility] REPOSITORY Final Report Accession No: [id number] Performed: Mar 30 2017 11:55AM Examination: [...] A,B RAPID Collected: 03/30/2017 Status: F Source: [facility] MOLECULAR 11:45 AM [facility] REPOSITORY TYPE CODE TESTS RESULT OUT OF REFERENCE UNITS RANGE LAB FLUANAT Not Detected Normal Influenza A Not Detected Rapid Molecular LAB FLUBNAT Not Detected Normal Influenza B Not Detected Rapid Molecular Performed By: #### FLUNAT #### Unless otherwise noted, all testing performed by [address] [place], [place] [address] CLIA: [id number] Copy Chief: Jesu Cruz M.D. ALLERGIES ALLERGIES DATE TYPE / CODE NAME / CODE REACTION SEVERITY SOURCE 07/04/2017 Drug doxycycline/B190738 Rash Unknown [place] Allergy/416 748(RXNORM) Community 446024([facility]) Repository 07/04/2017 Drug sulfamethoxazole/F0 Rash Unknown Alda Allergy/416 86268271(RXNORM) Community 704153([facility] ED CT) Repository 07/04/2017 Drug trimethoprim/Z61087 Rash Unknown [place] Allergy/416 2873(RXNORM) Community 410987([facility] ED CT) Repository 07/04/2017 Drug adhesive Rash Unknown Alda Allergy/416 tape/B445518353(RXN Community 764586([facility] ED CT) Repository 07/04/2017 Drug azathioprine/I79710 Rash Unknown [place] Allergy/416 3419(RXNORM) Community 309364([facility] ED CT) Repository 04/11/2017 DRUG DOXYCYCLINE [facility] INGREDI/419 Three Repository 747228(SNOM ED CT) 04/15/2016 [facility] 284945(SNOM ED CT) 02/16/2015 DRUG AZATHIOPRINE SODIUM Nausea High [facility] INGREDI/419 Three Repository 239870(SNOM ED CT) 05/29/2011 DRUG/569730 SULFAMETHOXAZOLE-TR Rash Low [facility] 003(SNOMED IMETHOPRIM Three Repository CT) Drug/651945 doxycycline Rash [facility] 003([facility] Repository Drug/938816 [employer] 003(SNOM[facility]) System Repository Drug/303935 Bactrim DS [facility] 003(SNOMED [facility]) System Repository ENCOUNTERS ENCOUNTERS ADMIT/DISCHARGE ACCOUNT NUMBER ADMITTING ENCOUNTER LOCATION SOURCE CLASS 02/26/2018 [id number] [facility], Ambulatory [facility] Dr. Ranulfo Rodney [facility] Repository 02/08/2018 [id number] Ambulatory [address] [place] [address] System ([place]) Repository 02/05/2018 [id number] Ambulatory [facility] ding:MRI Repository 01/20/2018 [id number] Ambulatory [facility] ding:RAD Repository 12/06/2017/12/07/19 [id number] Ambulatory Building:[facility] [address] R Repository 12/03/2017 [id number] [facility] Ambulatory [facility] Dr. Ranulfo Rodney [facility] Repository 10/14/2017 [id number] Ambulatory Building:[facility] SPORTSMEDGLE Three SSNER Repository 10/10/2017/10/11/19 [id number] Pasquale Xiong Ambulatory [address] [facility] Repository [place]ding:[place] Room 3 09/03/2017 [id number] Ambulatory [facility] ding:LAB Repository 08/27/2017/08/28/19 [id number] Ambulatory [address] MDBuilding:[facility] Repository 07/30/2017 [id number] [place] Ambulatory [facility] Dr. Ranulfo Rodney [facility] Repository 07/05/2017/07/06/[id number] ding:SDC Repository 07/04/2017 [id number] [facility] [address] Repository 06/14/2017/06/15/[id number] Anurag [address] Repository 06/03/2017/06/04/19 [id number] Ambulatory Building:[place] [address] [address] Three R Repository 05/28/2017/05/29/19 [id number] Ambulatory [address] MDBuilding[facility] Room 1 05/08/[id number] Akilah Ambulatory [facility] Repository 05/07/[id number] Akilah Ambulatory [facility] Repository 05/07/2017 [id number] Ambulatory [facility] [employer] ([place]) Repository 04/22/2017/04/22/19 [id number] Ambulatory Building:[facility] 18 M Three Repository 04/22/2017/04/22/19 [id number] Ambulatory Building:[place] [address] [address] Three R Repository 04/11/2017/04/11/19 [id number] Ambulatory Building:[facility] 18 M Three Repository 04/09/2017 [id number] Ambulatory Buildin [employer] [facility] ([place]) Repository 03/30/2017/03/30/[id number] Ahsan Emergency [address] lding:A1E [place] [facility] [place] DeptRoom: [facility] A1E I9LONmr: Repository A1E [id number] 03/22/2017/03/22/19 [id number] Ambulatory Building:[place] [address] [address] Three R Repository PAYERS PAYERS ENCOUNTER GUARANTOR PAYER SUBSCRIBER SOURCE 02/26/2018 Primary ZULEMA Perez [facility] Insurance:CareSourceP MOWRYDOB: Alesha and leandro Number: [id number] [place] [address] [id number] TAMICA Repository Date:[place], [place] Name:[facility] [address]Agr: [phone], [place] [phone] () [address]ZN: 02/05/2018 ZULEMA RAYGOZAY145 Primary ZULEMA KINCAID, Insurance:CARESOURCEP MOWRYDOB: [facility] [address]Ocg: [facility] Number: [id number] [id number] Repository () Date:2018-01-29[address]ATTN: [place] [address]WX: 02/05/2018 Secondary NOT GIVENUNK Alda Insurance:SELF PAY [facility] Number: Effective Repository Date:2018-01-29 01/20/2018 ZULEMA [id number] Primary [facility]ULEMA [facility], Insurance:CARESOURCEP MOWRYDOB: [facility] [address]Tkb: icy Number: [id number] Hospital [id number] Repository () Date:2018-01-20[address]ATTN: [place] [address]JU: 01/20/2018 Secondary NOT GIVENUNK Alda Insurance:SELF PAY [facility] Number: Effective Repository Date:2018-01-20 12/06/2017 ZULEMA J Primary [facility] J [facility] MOWRYDOB: Insurance:CARESOURCE MOWRYDOB: Three Repository MANAGED [id number] [place] MEDICAIDPolicy [place], [place] Number[facility] [place] [address]Njz: (419) [id number] [address]Zjc: (HP) Date:5214-51-94[phone] (HP) [address] [place] [phone]: 12/06/2017 Secondary ZULEMA J [facility] Insurance:CARESOURCE MOWRYDOB: Three Repository MANAGED [id number] MEDICAIDPolicy [place] Number[facility] [place] [id number]: (419) Date:5615-83-30OZ [phone] (HP) [address] [place] [address]ME: 12/03/2017 Primary [facility] Insurance:CareSourceP MOWRYDOB: [address] Number: [id number] [facility] [id number] TAMICA Repository Date:Plan [place], [place] Name:[facility] [address] [address]Fbt: [phone] [address], [place] [phone] (HP) [address]GM: 10/14/2017 ZULEMA J Primary ZULEMA J [facility] MOWRYDOB: Insurance:CARESOURCE MOWRYDOB: Three Repository MANAGED [id number] [place]AN MEDICAIDPolicy [address] [place] [address] Number: [facility] [place] [address]Lwm: [phone] [id number] [phone] (HP) Date:2013-07-26 - [id number] [address] [place] [phone]: 10/14/2017 Secondary ZULEMA J [facility] Insurance:CARESOURCE MOWRYDOB: Three Repository MANAGED [id number] MEDICAIDPolicy TAMICA Number: [facility] [id number]: (419) Date:8374-62-77DF [phone] (HP) [address], [place] [address]QV: 10/14/2017 Tertiary NOT GIVENUNK [facility] Insurance:HCAP/CHARIT Three Repository YPolicy Number: Effective Date:2015-09-13 - 2015-12-14 10/14/2017 Tertiary ZULEMA Perez [facility] Insurance:HCAP/CHARIT MOWRYDOB: Three Repository YPolicy Number: [id number] Effective S [address] Date:2015-09-13 - [address] 2016-03-15 [id number] 10/10/2017 ZULEMA J Primary ZULEMA Hernandez MOWRYDOB: Insurance:1500 MOWRYDOB: [facility] [id number] System [facility] [id number]: Number: Effective [place] [id number]: Date:2017-02-14 () [id number] ()Tel: (000) Name:[id number] O 000-0000 () [address] [place] [address]VA: 09/03/2017 ZULEMA J [id number] Primary ZULEMA Ana [facility]ODRIGUEZ[address], Insurance:CARESOURC MOWRYDOB: [facility] [address]Pmn: [facility] Number: [id number] [facility] [id number] Repository (HP) Date:2017-09-03 O BOX [facility] [place] [address]OX: 09/03/2017 Secondary NOT GIVENUNK Alda Insurance:SELF PAY [facility] Number: Effective Repository Date:2017-09-03 08/27/2017 ZULEMA J Primary ZULEMA Hernandez MOJOHNYDOB: Insurance:1500 MOWRYDOB: [facility] [id number] System [facility] [id number]: Number: Effective [place] [id number]: Date:2017-05-28 - (HP) [id number] (HP)Tel: (000) Name:[id number] O 000-0000 (WP) [address] [place] [phone]: 07/30/2017 Primary ZULEMA J [facility] Insurance:CareSourceP MOWRYDOB: [facility] Number: [id number] [facility] [id number] TAMICA Repository Date:[place], [place] Name:[facility] [address] [address]Vyu: [phone] [address], [place] [phone] (HP) [address]NQ: 07/05/2017 ZULEMA J [id number] Primary ZULEMA J Alda TAMICA [facility] Insurance:CARESOURCEP MOWRYDOB: [facility] [address]Rwt: [facility] Number: [id number] [id number] Repository (HP) Date:2017-06-28 [address]: [place] [address]XW: 07/05/2017 Secondary NOT GIVENUNK Alda Insurance:SELF PAY [facility] Number: Effective Repository Date:2017-06-28 07/04/2017 ZULEMA J Primary ZULEMA J [facility] MOWRYDOB: Insurance:CARESOURCE MOWRYDOB: Three Repository [id number] MANAGED [id number] GRANT MEDICAIDPolicy [address], [place] Number: [place], [place] [address]Tio: [phone] [id number] [phone] (HP) Date:2013-07-268468-74-66OA [address] [place] [address]HV: 07/04/2017 Secondary ZULEMA J [facility] Insurance:CARESOURCE MOWRYDOB: Three Repository MANAGED [id number] [facility]IDPol[facility] TAMICA Number: [place], [place] [id number]: ([phone]) Date:7867-62-39OB [phone] (HP) [address] [place] [address]LC: 07/04/2017 Tertiary NOT GIVENUNK [facility] Insurance:HCAP/CHARIT Three Repository YPolicy Number: Effective Date:2015-09-13 - 2015-12-14 07/04/2017 Tertiary ZULEMA J [facility] Insurance:HCAP/CHARIT MOWRYDOB: Three Repository YPolicy Number: [id number] Effective S [address] Date:2015-09-13 - [address] 2016-03-15 [id number] 06/14/2017 Primary ZULEMA J [facility] Insurance:CareSourceP MOWRYDOB: Sriram Number: [id number] [facility] [id number] TAMICA Repository Date:[place], [place] Name:HealthPO [address] [address]Vtt: [phone] [address] [place] [phone] (HP) [address]YU: 06/03/2017 ZULEMA J Primary ZULEMA J [facility] MOWRYDOB: Insurance:CARESOURCE MOWRYDOB: Three Repository MANAGED [id number] T[place] MEDICAIDPolicy TAMICA [address] [facility]ENTER[facility]IO[facility], [place] Number: [place], [place] [address]Hec: [phone] [id number] [address]Swo: (HP) Date:6064-73-12DB [phone] (HP) [address] [place] [phone]: 06/03/2017 Secondary ZULEMA J [facility] Insurance:CARESOURCE MOWRYDOB: Three Repository MANAGED [id number] MEDICAIDPolicy T[place]ICA Number: [place], [place] [id number]: (419) Date:2580-49-15TY [address] (HP) [address] [place] [phone]: 05/28/2017 ZULEMA J Primary ZULEMA J Buddhism MOWRYDOB: Insurance:1500 MOWRYDOB: [facility] MEGHNA ALMAZAN [id number] System TAMICA [facility] [id number]: Number: [place] [id number]: Date:2017-04-29 - (HP) [id number] (HP)Tel: (000) Name:CD:[id number] O 000-0000 () [address], [place] [address]HG: 05/08/2017 Primary ZULEMA J [facility] Insurance:CareSourceP MOWRYDOB: [address] [facility] Number: [id number] [facility] [id number] TAMICA Repository Date:[place], [place] Name:[facility] [address]Irc: [phone] [address] [place] [phone] (HP) [address]XB: 05/07/2017 Primary ZULEMA J [facility] Insurance:CareSourceP MOWRYDOB: [address] [facility] Number: [id number] [facility] [id number] TAMICA Repository Date:[place]irmal [place] Name:[facility] [address]Whn: 419) [address] [place] [address] [phone] (HP) [address]JU: 04/22/2017 ZULEMA J Primary ZULEMA J [facility] MOWRYDOB: Insurance:CARESOURCE MOWRYDOB: Three Repository MANAGED [id number] GRANT MEDICAIDPolicy [place] [address] Number: [place], [place] [address]Emv: [phone] [id number] [address]Sjc: (HP) Date:2784-79-56VQ [phone] (HP) [address], [place] [address]WW: 04/22/2017 Secondary ZULEMA J [facility] Insurance:CARESOURCE MOWRYDOB: Three Repository MANAGED [id number] MEDICAIDPolicy T[place]ICA Number: [place], [place] [id number] [address]Ihc: (419) Date:7968-72-85UX [phone] (HP) [address] [place] [phone]: 04/22/2017 ZULEMA J Primary ZULEMA J [facility] MOWRYDOB: Insurance[facility] MOWRYDOB: Three Repository MANAGED [id number] [place] MEDICAIDPolicy [place] Number: [place] [id number]: (419) [id number] [address]Muj: (HP) Date:7914-76-73DK [phone] (HP) [address] [place] [phone]: 04/22/2017 Secondary ZULEMA J [facility]: Three Repository MANAGED [id number] MEDICAIDPolicy [place] Number: [place] [id number] [address]Eus: (419) Date:7295-10-90DH [phone] (HP) [address] [place] [phone]: 04/11/2017 ZULEMA J Primary ZULEMA J [facility] MOWRYDOB: Insurance[facility] MOWRYDOB: Three Repository MANAGED [id number] [place] MEDICAIDPolicy [place] Number: [place] [address]Svt: (419) [id number] [address]Wem: (HP) Date:9379-56-78SB [phone] (HP) [address] [place] [phone]: 04/11/2017 Secondary ZULEMA J [facility] Insurance:CARESOURCE MOWRYDOB: Three Repository MANAGED [id number] MEDICAIDPolicy [place] Number: [place] [id number] [address]Jsq: (419) Date:5068-95-95YD [phone] (HP) [address] [place] [phone]: 03/30/2017 Primary [facility] J [facility] Insurance:CareSourceP MOWRYDOB: Sriram Number: [id number] [facility] [id number] TAMICA Repository Date:Plan [place] Name:HealthPO [address] [address]Mdf: [phone] [address] [place] [address] [phone] (HP) [address]OI: 03/22/2017 ZULEMA J Primary ZULEMA J [facility] MOWRYDOB: Insurance:CARESOURCE MOWRYDOB: Three Repository [id number] MANAGED [id number] GRANT MEDICAIDPolicy [place] Number: [place] [address]Jti: [address]Uqh: (258) [id number] [phone] (HP) Date:3668-15-45PR [address]OX (HP) [address] [place] [phone]: 03/22/2017 Secondary ZULEMA J [facility] Insurance:CARESOURCE MOWRYDOB: Three Repository MANAGED [id number] MEDICAIDPolicy GRANT SANJIV, Number: [place] [address]Ihs: [id number] Date:9316-30-94VD BOX (HP) [address] [place] [phone]:
--- OUTSIDE RECORDS SUMMARY | 2018-03-24 05:35 | XMS RPT_ITS | Summary of Care ---
:1965 Author Organization [facility] Address [address] [place] [address] Care Team Providers Name Role Phone Bairon Isbell DO Primary Care Provider Encounter Details Date Type Department Care Team Description 12/03/2017 Hospital Encounter [facility] Bairon Voss [address] Teran MD [place], [place] [address] [address] [place] [address] Allergies Active Allergy Reactions Severity Noted Date Comments Azathioprine 04/15/2016 Other reaction(s): Unknown Sulfamethoxazole-Trimethopr Rash Low 05/29/2011 im Doxycycline 04/11/2017 Azathioprine Sodium GI Intolerance High 02/16/2015 Liver issues as of this encounter Medications Prescription Sig. Disp. Refills Start Date End Date Status atenolol (TENORMIN) 25 Take 25 mg by Active MG tablet mouth daily lisinopril Take 5 mg by Active (PRINIVIL,ZESTRIL) 5 MG mouth daily tablet pravastatin (PRAVACHOL) Take 20 mg by Active 20 MG tablet mouth nightly aspirin 81 MG EC tablet Take 81 mg by Active mouth daily traZODone (DESYREL) 100 Take 200 mg by Active MG tablet mouth nightly as needed for sleep . FLUoxetine (PROZAC) 20 Take 20 mg by Active MG capsule mouth daily fenofibrate (TRICOR) 54 Take 54 mg by Active MG tablet mouth daily Give with food albuterol (ACCUNEB) 0.63 3 (three) times 04/19/2015 Active mg/3 mL nebulizer a day as needed solution . EPIPEN 2-DOMONIQUE 0.3 mg/0.3 0.3 mg once . 04/19/2015 Active mL AtIn gabapentin (NEURONTIN) 300 mg 3 (three) 04/19/2015 Active 300 MG capsule times a day . LORazepam (ATIVAN) 1 MG Take 1 mg by 04/19/2015 Active tablet mouth every 6 (six) hours as needed . DULoxetine (CYMBALTA) 30 Take 30 mg by Active MG capsule mouth daily. tiZANidine (ZANAFLEX) 4 Take by mouth Active MG tablet nightly. mometasone (ELOCON) 0.1 Apply topically 45 g 1 04/11/2017 Active % cream daily. 9 camphor-menthol (SARNA Apply topically 222 mL 2 04/11/2017 Active ANTI-ITCH) lotion as needed for 9 itching. promethazine (PHENERGAN) Take 1 (one) 60 tablet 1 05/29/2017 Active 25 MG tabletIndications: tablet (25 mg 9 Nausea total) by mouth every 6 (six) hours as needed for nausea. BREO ELLIPTA 100-25 Inhale daily. 04/29/2017 Active mcg/dose DsDv traMADol (ULTRAM) 50 mg Take 50 mg by 05/27/2017 Active tablet mouth 3 (three) times a day. leflunomide (ARAVA) 20 Take 1 (one) 90 tablet 1 08/21/2017 Active MG tabletIndications: tablet (20 mg 8 Seropositive rheumatoid total) by mouth arthritis (HCC) daily. methylPREDNISolone follow package 21 tablet 2 09/17/2017 Active (MEDROL DOSEPACK) 4 mg directions . tablet as of this encounter Active Problems Problem Noted Date Lumbar degenerative disc disease 07/12/2016 Lumbar radiculopathy 05/25/2016 CAD (coronary artery disease) 09/27/2015 Overview: Catheterization 2009 nonobstructive disease left main and RCA findings 30-40% Last Assessment & Plan: The patient has developed some dyspnea on exertion as well as some chest tightness. This is been going on over the last several weeks. It is a change from her baseline. Because of her known coronary disease and her considerable risk factors, I ordered a Lexiscan SPECT. She cannot walk on a treadmill secondary to orthopedic issues rheumatologic issues. The results of her workup will be forthcoming. Nicotine abuse 09/27/2015 Last Assessment & Plan: She continues to smoke. He was warned about the adverse consequences of persistent tobacco abuse. I believe her long-term prognosis is extremely poor she does not stop smoking. Hyperlipidemia 09/27/2015 Last Assessment & Plan: The patient is on statin therapy. Rheumatoid arthritis (HCC) 06/14/2015 Social History Tobacco Use Types Packs/Day Years Used Date Current Every Day Smoker 1 Smokeless Tobacco: Never Used Alcohol Use Drinks/Week oz/Week Comments No Sex Assigned at Date Recorded Not on file as of this encounter Plan of Treatment Upcoming Encounters Date Type Specialty Care Team Description 12/06/2017 Office Visit Orthopedic Surgery Bairon Voss MD [address] [place] [address] [phone] Health Maintenance Due Date Last Done Comments COLONOSCOPY 1965 HEPATITIS C SCREENING 1965 PAP SMEAR 1965 TETANUS EVERY 10 YR 1965 SEQUENTIAL INFLUENZA VACCINE (#1) 2017 as of this encounter Procedures Procedure Name Priority Date/Time Associated Comments Diagnosis MHS - BUN AND Routine 12/03/2017 9:31 Results for this CREATININE AM EDT procedure are in the results section. CBC AND DIFFERENTIAL Routine 12/03/2017 9:31 Results for this AM EDT procedure are in the results section. HEPATIC FUNCTION Routine 12/03/2017 9:31 Results for this PANEL AM EDT procedure are in the results section. in this encounter Results BUN and Creatinine (12/03/2017 9:31 AM) BUN 20 8 - 25 mg/dL [facility] Creatinine 1.14 (H) 0.40 - 1.10 mg/dL [facility] eGFR 50 (L) >60 [facility] Comment: ml/min/1.73sq.m [facility] Non- GFR Calc eGFR is an estimated Glomerular Filtration Rate based on the value of the patient's serum creatinine. In outpatients, eGFR should be used as a helpful tool in screening for CKD. In inpatients or patients with acute renal failure, eGFR represents the GFR at the moment of the draw and should be used with caution. eGFR >=60Comment: ml/min/1.73sq.m [facility] Palestinian GFR Calc HOSPITAL Specimen Blood Performing Organization Address City/[facility] Phone Number [facility] [address] [place] [address] Hepatic Function Panel (12/03/2017 9:31 AM) AST 36 0 - 45 U/L [facility] Comment: [facility] This test result might be falsely depressed or falsely elevated on samples drawn from patients taking Sulfasalazine and Sulfapyridine. Venipuncture should occur prior to taking either of these drugs. ALT 48 14 - 65 U/L [facility] Comment: HOSPITAL This test result might be falsely depressed or falsely elevated on samples drawn from patients taking Sulfasalazine and Sulfapyridine. Venipuncture should occur prior to taking either of these drugs. Alkaline Phosphatase 41 40 - 150 U/L [facility] Bilirubin, Total 0.3 0.3 - 1.2 mg/dL [facility] Bilirubin, Direct 0.1 0.0 - 0.4 mg/dL [facility] Total Protein 7.5 6.0 - 8.0 g/dL [facility] Albumin 3.7 3.2 - 5.2 g/dL [facility] Specimen Blood Performing Organization Address [facility] [place]/[facility] Hospitalcode Phone Number [facility] [address] [place] [address] CBC and Differential (12/03/2017 9:31 AM) WBC 6.9 3.4 - 10.6 /[facility] RBC 4.17 3.7 - 5.0 /[facility] Hemoglobin 12.8 11.6 - 15.4 g/dL [facility] Hematocrit 38.1 34.4 - 44.8 % [facility] MCV 91.3 82.6 - 98.9 [facility] MCH 30.6 27.9 - 33.9 pg [facility] MCHC 33.5 33.1 - 35.1 g/dL [facility] RDW 13.2 10.0 - 14.4 % [facility] Platelets 393 162 - 402 /[facility] MPV 8.2 7.0 - 10.6 [facility] Absolute Neutrophils 3.5 1.2 - 6.9 K/[facility] Absolute Lymphocytes 2.3 1.0 - 3.7 K/[facility] Absolute Monocytes 0.9 (H) 0.1 - 0.6 K/[facility] Absolute Eosinophils 0.1 0 - 0.5 K/[facility] Absolute Basophils 0.1 0 - 0.2 /[facility] Segmented Neut 50.2 % [facility] Lymphocytes 33.7 % [facility] Monocytes 12.9 % [facility] Eosinophils 1.9 % [facility] Basophils 1.3 % [facility] Specimen Blood Performing Organization Address City/State/Zipcode Phone Number [facility] [address] [place] [address] in this encounter
--- OUTSIDE RECORDS SUMMARY | 2018-03-24 05:35 | XMS RPT_ITS | Summary of Care ---
:1965 Author Organization [facility] Address [address] [place] [address] Care Team Providers Name Role Phone Bairon Isbell DO Primary Care Provider Reason for Referral Evaluate and Treat (Routine) Status Reason Specialty Diagnoses / Referred By Referred To Procedures Contact Contact Authorized Specialty Physical Medicine Diagnoses Muscle tightness Manisha Voss [facility] Jim Ybarra DO Required/[place] FORTE [address] [place] [address] [address] [facility] [place] [phone] Phone: Fax: Encounter Details Date Type Department Care Team Description 12/06/2017 Office Visit [facility] Orthopedic Bairon Voss Rheumatoid arthritis involving multiple sites, unspecified rheumatoid factor presence (HCC) (Primary Dx); and Sports Medicine MD Parul Muscle tightness; [address] Fibromyalgia Medical Office [place], [place] [address] [address] [place], [place] [phone] Allergies Active Allergy Reactions Severity Noted Date [...] (MEDROL DOSEPACK) 4 mg directions . tablet atorvastatin (LIPITOR) Take 10 mg by 11/12/2017 Active 10 MG tablet mouth daily. HYDROcodone-acetaminophe Take by mouth 2 11/25/2017 Active n (NORCO) 5-325 mg per (two) times a tablet day. ascorbic acid, vitamin Take 1,000 mg by Active C, (vitamin C) 1000 MG mouth daily. tablet multivitamin Take 1 tablet by Active (multivitamin) per mouth daily. tablet cranberry fruit extract Take by mouth Active (CRANBERRY EXTRACT ORAL) every other day. as of this encounter Active Problems Problem [...] Vital Sign Reading Time Taken Blood Pressure 125/82 12/06/2017 11:23 AM EDT Pulse 85 12/06/2017 11:23 AM EDT Temperature - - Respiratory Rate - - Oxygen Saturation - - Inhaled Oxygen Concentration - - Weight 78.6 kg (173 lb 4.8 oz) 12/06/2017 11:23 AM EDT Height - - Body Mass Index 30.71 12/06/2017 11:23 AM EDT in this encounter Progress Notes Bairon Voss MD - 12/06/2017 1:45 PM EDTFormatting of this note may be different from the original. [facility]. Name: Vee Nesbitt Date:12/06/17 [id number] :1965 Allergies: Imuran [azathioprine sodium]; Azathioprine; Doxycycline; and Bactrim [sulfamethoxazole-trimethoprim] Medications: Current Outpatient Prescriptions: ??? albuterol (ACCUNEB) 0.63 mg/3 mL nebulizer solution, 3 (three) times a day as needed ., Disp: ,Rfl: ??? ascorbic acid, vitamin C, (vitamin C) 1000 MG tablet, Take 1,000 mg by mouth daily., Disp: , Rfl: ??? aspirin 81 MG EC tablet, Take 81 mg by mouth daily, Disp: , Rfl: ??? atenolol (TENORMIN) 25 MG tablet, Take 25 mg by mouth daily, Disp: , Rfl: ??? atorvastatin (LIPITOR) 10 MG tablet, Take 10 mg by mouth daily., Disp: , Rfl: ??? BREO ELLIPTA 100-25 mcg/dose DsDv, Inhale daily., Disp: , Rfl: ??? cranberry fruit extract (CRANBERRY EXTRACT ORAL), Take by mouth every other day., Disp: , Rfl: ??? DULoxetine (CYMBALTA) 30 MG capsule, Take 30 mg by mouth daily., Disp: , Rfl: ??? fenofibrate (TRICOR) 54 MG tablet, Take 54 mg by mouth daily Give with food, Disp: , Rfl: ??? HYDROcodone-acetaminophen (NORCO) 5-325 mg per tablet, Take by mouth 2 (two) times a day., Disp: , Rfl: ??? leflunomide (ARAVA) 20 MG tablet, Take 1 (one) tablet (20 mg total) by mouth daily., Disp: 90 tablet, Rfl: 1 ??? LORazepam (ATIVAN) 1 MG tablet, Take 1 mg by mouth every 6 (six) hours as needed ., Disp: , Rfl: ??? multivitamin (multivitamin) per tablet, Take 1 tablet by mouth daily., Disp: , Rfl: ??? tiZANidine (ZANAFLEX) 4 MG tablet, Take by mouth nightly., Disp: , Rfl: ??? traZODone (DESYREL) 100 MG tablet, Take 200 mg by mouth nightly as needed for sleep ., Disp: , Rfl: ??? camphor-menthol (SARNA ANTI-ITCH) lotion, Apply topically as needed for itching., Disp: 222 mL,Rfl: 2 ??? EPIPEN 2-DOMONIQUE 0.3 mg/0.3 mL AtIn, 0.3 mg once ., Disp: , Rfl: ??? FLUoxetine (PROZAC) 20 MG capsule, Take 20 mg by mouth daily, Disp: , Rfl: ??? gabapentin (NEURONTIN) 300 MG capsule, 300 mg 3 (three) times a day ., Disp: , Rfl: ??? lisinopril (PRINIVIL,ZESTRIL) 5 MG tablet, Take 5 mg by mouth daily, Disp: , Rfl: ??? methylPREDNISolone (MEDROL DOSEPACK) 4 mg tablet, follow package directions ., Disp: 21 tablet,Rfl: 2 ??? mometasone (ELOCON) 0.1 % cream, Apply topically daily., Disp: 45 g, Rfl: 1 ??? pravastatin (PRAVACHOL) 20 MG tablet, Take 20 mg by mouth nightly, Disp: , Rfl: ??? promethazine (PHENERGAN) 25 MG tablet, Take 1 (one) tablet (25 mg total) by mouth every 6 (six)hours as needed for nausea., Disp: 60 tablet, Rfl: 1 ??? traMADol (ULTRAM) 50 mg tablet, Take 50 mg by mouth 3 (three) times a day., Disp: , Rfl: Chief Complaint: Patient here for rheumatoid arthritis evaluation Interim History: The patient reports that she is still seeing her pain management physician and is currently on twicea day Vallecitos for her back. She has had injections in her back as well. She notes that her right fourth toe seems to becoming crooked. She notes that she is fatigued and feels tired all the time. Shewakes up feeling unrestored. She notes her sleep is restless and she tosses and turns a lot and hasnocturia x2. She is tolerating her leflunomide well and has not had any problems with it she is aware of. She has not had any flareups involving peripheral joint synovitis. She notes that when she lays on either side at night her shoulders will hurt and she treats this to pressure on tender/trigger points from her fibromyalgia. She does take trazodone before bedtime but does not feel it is helping as much as it used to. Patient also does mention that for months she has had problems with tightness in the posterior thighs and calf muscles of both legs. She notes that no matter how much stretching she does they always feel tight. Interim ROS: Eyes: Denies new ocular events____ Derm:_Denies new dermatologic disease____ ENT:_Denies new ear nose throat events____ Cardio:_Denies new cardiac conditions___ Pulm:_Denies new pulmonary problems____ G.I:_Denies new intestinal issues Renal:_Denies new renal disorders____ Hem/Onc:_Denies new hematologic or oncologic diagnoses___ Interim Social History: No change Exams: Inspection of the hands and wrists reveals no synovitis. The right fourth toe does demonstrate curling but also appears to be impacting against the fifth toe. Interim Lab Review: Component Latest Ref Rng & Units 12/03/2017 WBC 3.4 - 10.6 K/mcL 6.9 RBC 3.7 - 5.0 M/mcL 4.17 Hemoglobin 11.6 - 15.4 g/dL 12.8 Hematocrit 34.4 - 44.8 % 38.1 MCV 82.6 - 98.9 FL 91.3 MCH 27.9 - 33.9 pg 30.6 MCHC 33.1 - 35.1 g/dL 33.5 RDW 10.0 - 14.4 % 13.2 Platelets 162 - 402 K/mcL 393 MPV 7.0 - 10.6 FL 8.2 Absolute Neutrophils 1.2 - 6.9 K/mcL 3.5 Absolute Lymphocytes 1.0 - 3.7 K/mcL 2.3 Absolute Monocytes 0.1 - 0.6 K/mcL 0.9 (H) Absolute Eosinophils 0 - 0.5 K/mcL 0.1 Absolute Basophils 0 - 0.2 K/mcL 0.1 Segmented Neut % 50.2 Lymphocytes % 33.7 Monocytes % 12.9 Eosinophils % 1.9 Basophils % 1.3 Component Latest Ref Rng & Units 12/03/2017 AST 0 - 45 U/L 36 ALT 14 - 65 U/L 48 Alkaline Phosphatase 40 - 150 U/L 41 Bilirubin, Total 0.3 - 1.2 mg/dL 0.3 Bilirubin, Direct 0.0 - 0.4 mg/dL 0.1 Total Protein 6.0 - 8.0 g/dL 7.5 Albumin 3.2 - 5.2 g/dL 3.7 Component Latest Ref Rng & Units 05/07/2017 07/30/2017 12/03/2017 BUN 8 - 25 mg/dL 20 19 20 Creatinine 0.40 - 1.10 mg/dL 1.12 (H) 1.05 1.14 (H) eGFR >60 ml/min/1.73sq.m 51 (L) 55 (L) 50 (L) eGFR ml/min/1.73sq.m >=60 >=60 >=60 Reviewed and discussed the lab studies with the patient. Impression: RA appears to be clinically controlled at this time. Plan: 1. Lengthy discussion with the patient. I advised her to continue the leflunomide as is. I did recommend that she contact her primary care provider regarding her renal function tests which are of some concern given her age. The renal function tests are printed for her and given to her. 2. I suggested that she also discussed with her primary care practitioner the sleep issue that she is experiencing and that perhaps her trazodone dose could be adjusted or new agent used instead. 3. I did advise that she could try lidocaine gel for her shoulders at nighttime to see if that will dampen down the discomfort she is experiencing. 4. With respect to the leg muscle tightness she is experiencing, I advised that a cement breaker would be the best type of physician to evaluate that problem for her and she does request a referral to 1.Thus a referral to Dr. Bairon Dyer is placed. 5. Return in 6 months or sooner as needed. 6. More than 50% of the 15-minute office time today was spent in counseling. Please note: Portions of this chart may have been created with [employer] voice recognition software. Occasional wrong-word or sound-like substitutions may have occurred due to inherent limitations of the voice recognition software. Please read the chart carefully and recognize, using context, where the substitutions have occurred. Bairon Voss MD in this encounter Plan of Treatment Upcoming Encounters Date Type Specialty Care Team Description 01/02/2018 Office Visit Orthopedic Surgery Sole Ralph MD [address] [place] [address] [phone] 06/06/2018 Office Visit Orthopedic Surgery Baiorn Voss MD [address] [place] [address] [phone] Scheduled Tests Name Priority Associated Diagnoses Order Schedule BUN Routine Rheumatoid arthritis 8 wks for 6 Occurrences involving multiple sites, starting 12/06/2017 until unspecified rheumatoid 12/07/2018 factor presence (HCC) Creatinine, serum Routine Rheumatoid arthritis 8 wks for 6 Occurrences involving multiple sites, starting 12/06/2017 until unspecified rheumatoid 12/07/2018 factor presence (HCC) Hepatic Function Panel Routine Rheumatoid arthritis 8 wks for 6 Occurrences involving multiple sites, starting 12/06/2017 until unspecified rheumatoid 12/07/2018 factor presence (HCC) CBC and Differential Routine Rheumatoid arthritis 8 wks for 6 Occurrences involving multiple sites, starting 12/06/2017 until unspecified rheumatoid 12/07/2018 factor presence (HCC) Scheduled Referrals Name Priority Associated Diagnoses Order Schedule Ambulatory referral to Routine Muscle tightness 1 Occurrences starting Physicial Medicine Rehab 12/06/2017 until 12/06/2018 Health Maintenance Due Date Last Done Comments COLONOSCOPY 1965 HEPATITIS C SCREENING 1965 PAP SMEAR 1965 TETANUS EVERY 10 YR 1965 URINE MICROALBUMIN 1974 SEQUENTIAL INFLUENZA VACCINE (#1) 2017 as of this encounter Visit Diagnoses Diagnosis Rheumatoid arthritis involving multiple sites, unspecified rheumatoid factor presence (HCC) - Primary Muscle tightness Fibromyalgia Unspecified myalgia and myositis
== END ==
PROVIDERS: Referring Provider Anesthesiology Pain Medicine; Visit Provider Anesthesiology Pain Medicine
DX: M54.9 Dorsalgia, unspecified (principal); M79.606 Pain in leg, unspecified
CPT/HCPCS: 72148

== ENCOUNTER → 2018-05-07 16:25 | Outpatient (CLI) | payer MEDICAID, SELFPAY ==
[2018-05-07 18:23] LABS: Amphetamine Urine VISTA NEGATIVE (<1000 ng/mL); Barbiturate Urine VISTA NEGATIVE (< 200 ng/mL); Benzodiazepine Urine VISTA NEGATIVE (< 200 ng/mL); Cocaine Urine VISTA NEGATIVE (< 300 ng/mL); Ecstacy Urine VISTA NEGATIVE (< 500 ng/mL); Methadone Urine VISTA NEGATIVE (< 300 ng/mL); PCP Urine VISTA NEGATIVE (< 25 ng/mL); THC Urine VISTA NEGATIVE (< 50 ng/mL); Vista UDS pH Range 6
== END ==
PROVIDERS: Referring Provider Anesthesiology Pain Medicine; Visit Provider Anesthesiology Pain Medicine
DX: F11.20 Opioid dependence, uncomplicated (principal)
CPT/HCPCS: 80307